=== PATIENT | female | born 1970 | race Caucasian/White ===

== ENCOUNTER 2023-01-26 07:56 | Outpatient (OUT) | payer OTHER, SELFPAY ==
--- NOTE | 2023-01-26 07:59 | MM_ITS ---
Patient: FRANCES STEEL Exam Date: 01/26/2023 : 1970 Gender:F Ordering : DR SARA PIERCE M.D. Admission #: [id number] Family : Order #: [id number] CLICK HERE TO VIEW EXAM RADIOLOGY REPORT PROCEDURE: MM TOMOSYNTHESIS SCREENING BI COMPARISON: MM TOMOSYNTHESIS SCREENING BI, 04/21/2018. MM TOMOSYNTHESIS SCREENING BI, 03/23/2020. INDICATIONS: Screening Calculator Name NCI Breast Cancer Risk Assessment Tool 5 Year Breast Cancer Risk Not Reported. Lifetime Breast Cancer Risk Not Reported. Personal Breast Cancer No Personal Ovarian Cancer No Treatments None Family Cancers None LOCATION: [facility] BREAST COMPOSITION: Heterogeneously dense,which may obscure small masses. FINDINGS: DIAGNOSTIC CATEGORY 1--NEGATIVE. NO CHANGE FROM COMPARISON ASSESSMENT. Scattered benign-appearing calcifications are present. Scattered benign-appearing lymph nodes are present. RIGHT BREAST: No significant suspicious finding. LEFT BREAST: No significant suspicious finding. RECOMMENDATIONS: ROUTINE MAMMOGRAM AND CLINICAL EVALUATION IN 12 MONTHS. PLEASE NOTE: A NORMAL MAMMOGRAM DOES NOT EXCLUDE THE POSSIBILITY OF BREAST CANCER. A CLINICALLY SUSPICIOUS PALPABLE LUMP SHOULD BE BIOPSIED. Dictated by: Doroteo Pierce MD on 01/26/2023 at 10:52 Approved by: Doroteo Pierce MD on 01/26/2023 at 10:53
== END 2023-01-26 07:57 | disposition home or self-care (01) ==
LOC: MAMMO 07:56
PROVIDERS: PCP Family Medicine; Visit Provider Family Medicine
DX: Z12.31 Encounter for screening mammogram for malignant neoplasm of breast (principal)
CPT/HCPCS: 77063; 77067

== ENCOUNTER 2024-02-04 10:13 | Outpatient (OUT) | payer OTHER, SELFPAY ==
--- NOTE | 2024-02-04 10:18 | MM_ITS ---
Patient Name: FRANCES STEEL MR#: [id number] : 1970 Exam Date: 02/04/2024 Ordering Doctor: DR SARA PIERCE M.D. RADIOLOGY REPORT PROCEDURE: MM TOMOSYNTHESIS SCREENING BI COMPARISON: MM TOMOSYNTHESIS SCREENING BI, 01/26/2023. MM TOMOSYNTHESIS SCREENING BI, 03/23/2020. MM TOMOSYNTHESIS SCREENING BI, 04/21/2018. INDICATIONS: Screening Calculator Name NCI Breast Cancer Risk Assessment Tool 5 Year Breast Cancer Risk Not Reported. Lifetime Breast Cancer Risk Not Reported. Personal Breast Cancer No Personal Ovarian Cancer No Treatments None Family Cancers None LOCATION: [facility] BREAST COMPOSITION: The breasts are heterogeneously dense,which may obscure small masses. FINDINGS: DIAGNOSTIC CATEGORY 2--BENIGN FINDING: RIGHT BREAST: No significant suspicious finding. Scattered benign-appearing calcifications are present. No significant change has occurred. LEFT BREAST: No significant suspicious finding. Scattered benign-appearing calcifications are present. No significant change has occurred. RECOMMENDATIONS: ROUTINE MAMMOGRAM AND CLINICAL EVALUATION IN 12 MONTHS. PLEASE NOTE: A NORMAL MAMMOGRAM DOES NOT EXCLUDE THE POSSIBILITY OF BREAST CANCER. A CLINICALLY SUSPICIOUS PALPABLE LUMP SHOULD BE BIOPSIED. Dictated by: Brody Pierson M.D. on 02/05/2024 at 14:51 Approved by: Brody Pierson M.D. on 02/05/2024 at 14:54
== END 2024-02-04 10:14 | disposition home or self-care (01) ==
PROVIDERS: PCP Family Medicine; Visit Provider Family Medicine
DX: Z12.31 Encounter for screening mammogram for malignant neoplasm of breast (principal)
CPT/HCPCS: 77063; 77067

== ENCOUNTER 2025-02-16 09:20 | Outpatient (OUT) | payer OTHER, SELFPAY ==
--- OUTSIDE RECORDS SUMMARY | 2025-02-16 09:25 | XMS_ITS | CCD ---
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 back; Translations: [Muscle spasm of back] 04-18-2024 Episodic Substance-related disorders (6 sources) Tobacco dependence caused by cigarettes; Translations: [Nicotine dependence, cigarettes, uncomplicated] 03-21-2024 Chronic Thyroid disorders (20 sources) Hypothyroidism; Translations: [Hypothyroidism, unspecified] Onset: 8 Resolved: 3 10-12-2017 Chronic Unclassified (1 source) Patient encounter status 09-17-2022 Urinary tract infections (20 sources) Chronic interstitial cystitis; Translations: [Interstitial cystitis (chronic) without hematuria] Onset: 7 Resolved: 3 Chronic Urinary tract infections (14 sources) Urinary tract infectious disease; Translations: [UTI (urinary tract infection)] Onset: 2 Resolved: 2 Episodic Past or Other Problems Problem Classification Problem Date Documented Date Episodic/Chronic Acquired foot deformities (20 sources) Plantarflexion deformity of foot; Translations: [Other acquired deformities of unspecified foot] Onset: 9 Resolved: 3 03-11-2023 Episodic Genitourinary symptoms and ill-defined conditions (20 sources) Dysuria; Translations: [Bladder pain] Onset: 7 Resolved: 3 Episodic Inflammatory diseases of female pelvic organs (20 sources) Acute vaginitis; Translations: [Acute vaginitis] Onset: 8 Resolved: 3 03-11-2023 Episodic Menstrual disorders (20 sources) Amenorrhea; Translations: [Amenorrhea, unspecified] Onset: 1 Resolved: 3 03-11-2023 Chronic Nonmalignant breast conditions (20 sources) Microcalcifications of the breast; Translations: [Mammographic microcalcification found on diagnostic imaging of breast] Onset: 3 Resolved: 3 09-03-2022 Episodic Osteoarthritis (20 sources) Osteoarthritis; Translations: [Unspecified osteoarthritis, unspecified site] Onset: 3 Resolved: 3 03-11-2023 Chronic Other gastrointestinal disorders (20 sources) Slow transit constipation; Translations: [Slow transit constipation] Onset: 0 Resolved: 3 03-24-2023 Episodic Other skin disorders (3 sources) Rash and other nonspecific skin eruption; Translations: [RASH OTH NONSPECIFIC SKIN ERUPTION] Onset: 2 Episodic Other upper respiratory disease (20 sources) Allergic rhinitis; Translations: [Allergic rhinitis, unspecified] Onset: 3 Resolved: 3 09-03-2022 Chronic Otitis media and related conditions (1 source) Other acute nonsuppurative otitis media, bilateral Onset: 2 Resolved: 2 Episodic Screening and history of mental health and substance abuse codes (13 sources) Ex-smoker; Translations: [Personal history of nicotine dependence] Onset: 2 Episodic Sprains and strains (1 source) Strain of muscle, fascia and tendon of lower back, 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 Onset: 2 Resolved: 2 Episodic Results Test Name Value Interpretation Reference Range Facility ANES POSTPROC EVALon 024 ANES POSTPROC EVAL HNO ID: [id number] Author: KASHMIR CHARLES MD Service: Anesthesiology Author Type: Anesthesiologist Type: Anesthesia Postprocedure Evaluation Filed: 09/02/2023 16:49 Note Text: POST ANESTHESIA EVALUATION NOTE : 1970 Procedure Summary Date: 09/02/23 Room / Location: [address] Anesthesia Start: 1547 Anesthesia Stop: 1629 Procedures: CYSTOSCOPY (Bladder) HYDRODISTENTION BLADDER (Bladder) BLADDER IRRIGATION, SIMPLE, INSTILLATION- LIDOCAINE (Bladder) INJECTION BOTOX- 200 UNITS (Bladder) Diagnosis: Interstitial cystitis (Interstitial cystitis [N30.10]) Surgeons: Jolene Mark MD Responsible Provider: Kashmir Charles V, MD Anesthesia Type: general ASA Status: 2 Anesthesia Type: general Airway Type: LMA Last Vitals Vitals Value Taken Time BP 148/84 09/02/23 1645 Temp 36 ?C (96.8 ?F) 09/02/23 1628 Pulse 61 09/02/23 1648 Resp 16 09/02/23 1630 SpO2 95 % 09/02/23 1648 Vitals shown include unfiled device data. Post Anesthesia Patient Status Patient Evaluation: PACU. PACU/ICU Patient Condition: stable. Anticipated Disposition: phase 2 then home. Neurological Status: aware and responsive. Pulmonary Status: breathing comfortably on room air Airway Control: returned to baseline unsupported. Cardiovascular Status: stable. Pain Management: clinically adequate Postoperative Hydration: acceptable. Intraoperative Events: no significant anesthesia events Post Operative Nausea/Vomiting Status: no significant post operative nausea or vomiting Recommendation: continue current plan of care. Anesthesia Observations No Documentation SIGNATURE: Kashmir Charles MD PATIENT NAME: Frances Arizmendi DATE: September 02, 2023 TIME: 4:49 PM CSN: [id number] [facility] ANES PRE-OPon 09-02-2023 ANES PRE-OP HNO ID: [id number] Author: KASHMIR CHARLES MD Service: Anesthesiology Author Type: Anesthesiologist Type: Anesthesia Preprocedure Evaluation Filed: 09/02/2023 14:20 Note Text: ANESTHESIOLOGY DAY OF SURGERY NOTE : 1970 Procedure Information Date/Time: 09/02/23 1450 Procedures: CYSTOSCOPY (Bladder) HYDRODISTENTION BLADDER (Bladder) BLADDER IRRIGATION, SIMPLE, INSTILLATION- LIDOCAINE (Bladder) INJECTION BOTOX- 200 UNITS (Bladder) Location: [address] Surgeons: Jolene Mark MD Estimated body mass index is 30.96 kg/m? as calculated from the following: Height as of 08/20/23: 166.4 cm (5' 5.5 ). Weight as of this encounter: 85.7 kg (188 lb 15 oz). Most recent hematocrit and potassium results: No results found for this basename: HCT,HEMATOCRIT,K,POTASSIUM Relevant Problems ANESTHESIA (+) PONV (postoperative nausea and vomiting) ENDO (+) Hypothyroidism I - PHYSICAL EVALUATION AIRWAY Patient intubated: No. Tracheostomy tube not present Mallampati: II. TM distance: >3 FB. Neck ROM: full ROM without neurological symptoms. Mouth opening: adequate. Short neck: no. Thick neck: no DENTAL Dental findings: teeth intact. Additional exam findings: yes. CARDIOVASCULAR Rhythm: regular Rate: normal PULMONARY Breath sounds clear to auscultation. II - ANESTHESIA PLAN ASA Score: 2 Anesthetic Plan: general Airway type: LMA NPO Status: adequate Beta Dylon Monitoring Plan Monitoring plan: standard ASA. Post Procedure Analgesic Plan Postoperative analgesic plan: multimodal analgesia. Informed Consent Anesthetic risks, benefits, alternatives, personnel and consent discussed: yes. Patient / Responsible Republican agrees to proceed: yes Patient / Surrogate agrees to blood products: blood products not planned Significant changes in the patient condition since the History and Physical, not otherwise documented in primary service progress note: no. Potential Anesthesia issues that may suggest increased risk of complications or contraindication to planned procedure: none. Vitals Value Taken Time BP 127/75 09/02/23 1409 Pulse 61 09/02/23 1409 Resp 18 09/02/23 1409 Temp 36.1 ?C (97 ?F) 09/02/23 1409 SpO2 96 % 09/02/23 1409 Facility-Administered Medications as of 09/02/2023 Medication Dose Route Frequency - lidocaine (PF) 10 mg/mL (1 %) 1-2 mg injection (XYLOCAINE) 0.1-0.2 mL INTRADERMAL PRN - lactated ringers iv infusion 5-30 mL/hr INTRAVENOUS CONTINUOUS - NaCl 0.9% iv flush bag 20 mL INTRAVENOUS PRN - [COMPLETED] ciprofloxacin HCl 500 mg tab(s) (CIPRO) 500 mg ORAL ONCE - [COMPLETED] acetaminophen 1,000 mg tab(s) (TYLENOL) 1,000 mg ORAL ONCE - [COMPLETED] promethazine 12.5 mg tab(s) (PHENERGAN) 12.5 mg ORAL NOW Outpatient Medications as of 09/02/2023 Medication Sig - Cholecalciferol, Vitamin D3, 125 mcg (5,000 unit) cap Take 1 capsule by mouth once daily. - FLUoxetine (PROZAC) 20 mg capsule Take 1 capsule by mouth daily at bedtime. - levothyroxine (SYNTHROID) 50 mcg tablet Take 1 tablet by mouth once daily. - diazePAM (VALIUM) 10 mg tablet Take 1 tablet by mouth twice daily as needed for up to 30 days. - traMADol (ULTRAM) 50 mg tablet Take 1 tablet by mouth twice daily for 240 doses. - lidocaine urojet (XYLOCAINE, GLYDO) 2 % jelp Apply 10 mL to affected area twice daily as needed. - ALBUTEROL SULFATE INHALATION Inhale 1 Puff as instructed as needed. - docusate sodium (COLACE) 100 mg capsule Take 1 capsule by mouth twice daily. (Patient taking differently: Take 100 mg by mouth as needed.) - zolpidem (AMBIEN) 5 mg tablet Take 5 mg by mouth at bedtime as needed. I have interviewed and examined the patient. I have reviewed the medical record and/or the pre-anesthesia evaluation, pertinent labs, and test results. This contains updated information obtained within 48 hours of Surgery/Procedure. SIGNATURE: Kashmir Charles MD PATIENT NAME: Frances Arizmendi DATE: September 02, 2023 TIME: 2:19 PM CSN: [id number] [facility] HISTORY PHYSICALon HISTORY PHYSICAL HNO ID: [id number] Author: JOLENE MARK MD Service: ? Author Type: Physician Type: H&P Filed: 09/02/2023 15:23 Note Text: UPDATED HISTORY AND PHYSICAL EXAMINATION SERVICE DATE: 09/02/2023 SERVICE TIME: PHYSICAL EXAM MUST BE COMPLETED ON ADMISSION The History and Physical (completed in the past 30 days) has been reviewed and the patient has been examined. The contents accurately reflect the patient's condition with the following additions or revisions since the HANDP was completed. Examination indicates no changes. This HANDP can be found in the Electronic Medical Record. Neuro - Alert CV - RRR Lungs - no audible wheezes noted SIGNATURE: Jolene Mark MD PATIENT NAME: Frances Arizmendi DATE: September 02, 2023 TIME: 3:22 PM [facility] OPERATIVE NOon 09-02-2023 OPERATIVE NO HNO ID: [id number] Author: JOLENE MARK MD Service: Urology Author Type: Resident Type: Operative Report Filed: 09/03/2023 08:37 Note Text: Attestation signed by Jolene Mark MD at 09/03/2023 8:37 AM . OPERATIVE/PROCEDURE REPORT LOG ID: [id number] SURGERY/PROCEDURE DATE: 09/02/2023 INCISION/PROCEDURE START TIME: 4:06 PM INCISION CLOSE/PROCEDURE END TIME: 4:20 PM SURGEON(S)/PROCEDURALIST(S) AND MRB ENGINEER(S): Surgeon(s) and Role: * Jolene Mark MD - Primary * Bailey Campos MD - Resident - Assisting No Additional Staff SURGERY/PROCEDURE(S): Cystoscopy Injection of bladder botox (200 units) Instillation of lidocaine Fulguration of bladder ANESTHESIA: General SURGERY/PROCEDURE DETAILS: The Procedure Indications, Risks, benefits, alternatives and personnel were discussed with the patient who consents to proceed. The patient brought to OR and sign in communication performed involving the patient, surgeons, anesthesia, and operative staff, correctly identifying the patient, procedure, allergies, antibiotics, and equipment. Sequential compression devices were applied to the lower limbs and activated. General anesthesia was induced, weight-appropriate IV antibiotics were administered. Patient repositioned in dorsal lithotomy, pressure points were padded, and patient prepped and draped in sterile fashion. Timeout with safety checklist was performed. A rigid cystoscope with 30 degree lens was inserted atraumatically per urethra into the bladder and cystoscopy was performed. The findings were as follows: Urethra: normal, no lesions, no foreign body or obstruction, no overt evidence of a urethral diverticulum Bladder: white scarring from previous fulgurations at the posterior left bladder wall, posterior and both lateral zayas. Corkscrew capillaries AND capillary proliferation. No current Hunner's lesions. No tumors, masses, stones, or diverticula. Ureteral orifices were in orthotopic position with clear bilateral urine efflux. Botox was then injected to the bladder wall - 200 units in 20 cc in 20 locations throughout the posterior and bilateral bladder zayas and trigone. One bladder botox injection had persistent bleeding, so fulguration of this site was performed. The bladder was drained and re-irrigated until drainage became clear. A 16-Fr catheter was inserted, the bladder was completely drained and 70 mL 2% lidocaine solution was instilled. The catheter was removed. The patient safely woken from anesthesia and transferred to the recovery room in stable condition. Preoperative Diagnosis: Bladder pain / interstitial cystitis/bladder pain syndrome POST-OP/POST-PROCEDURE DIAGNOSIS: Same as Preop ESTIMATED BLOOD LOSS: 5 mls SPECIMENS: None IMPLANTABLE DEVICES: NONE DRAINS: None COMPLICATIONS: None PARTICIPATION IN SURGERY/PROCEDURE: I/primary surgeon/proceduralist performed the procedure with assistance. SIGNATURE: Bailey Campos MD PATIENT NAME: Frances Arizmendi DATE: September 02, 2023 TIME: 4:31 PM [facility] HISTORY PHYSICALon HISTORY PHYSICAL HNO ID: [id number] Author: TYSON VILLARREAL APRN.MANAGER BOOKS Service: ? Author Type: Nurse Practitioner Type: H&P Filed: 08/20/2023 10:40 Note Text: PREANESTHESIA CONSULT CLINIC TELEHEALTH VISIT SERVICE DATE: 08/20/2023 SERVICE TIME: 10:29 AM Patient has been identified by name and date of : Yes Reason for contact: PACC visit Accompanied by: Self This is a virtual visit using [employer] Video Visit. It required patient-provider interaction for the medical decision making as documented below. I have communicated my name and active licensure. The patient's identity and physical location were verified at the time of this visit. Either the patient or their legal medical claims representative has been informed of the risks and benefits of and alternatives to treatment through a remote evaluation and consents to proceed with the evaluation remotely. PRIMARY CARE PHYSICIAN: Rajendra Sellers MD REASON FOR VISIT: Frances Arizmendi is a 53 year old female who is scheduled for CYSTOSCOPY HYDRODISTENTION BLADDER BLADDER IRRIGATION, SIMPLE, INSTILLATION- LIDOCAINE INJECTION BOTOX- 200 UNITS at the request of Dr. Jolene Mark for consultation. My final recommendation will be communicated back to the requesting physician by way of shared medical record or letter. Assessment Patient has the following medical conditions which may affect josiah-operative course: Former smoker Assessment: Former Smoker quit in 2019 0.5 ppd x 18 years PONV (postoperative nausea and vomiting) Assessment: patient states gets PONV with Anesthesia Hypothyroidism Assessment: s/p Thyroidectomy on Levothyroxine(Synthroid) Depression Assessment: stable on medication Follows with Psych managing medications Denies any suicidal ideations Ferreira Activity Status Index: METS: Walk indoors, such as around the house (1.75 METs) Do light work around the house, such as dusting or washing dishes (2.70 METs) Take care of self; that is eating, dressing, bathing, using the toilet (2.75 METs) Walk a block or two on level ground (2.75 METs) Do moderate work around the house, such as vacuuming, sweeping floors, or carrying in groceries (3.50 METs) Do yardwork, such as raking leaves, weeding, or pushing a power mower (4.50 METs) Climb a flight of stairs or walk up a hill (5.50 METs) DASI Score: 23.45 Patient denies any chest pain or undue shortness of breath with the above physical activity. Clinical Frailty Scale: 2. Well STOP-Bang Score: Patient over 50 years old Denies snoring loudly Denies feeling tired, fatigued, or sleepy during the daytime Has not been observed to stop breathing or choking/gasping during sleep Denies having high blood pressure BMI less than or equal to 35 kg/m2 Does not have a large neck Non-male patient STOP-Bang Score: 1 [id number] Score: Age: <65 Sex: female CHF history: No Hypertension history: No Stroke/TIA/thromboembolism history: No Vascular disease history: No Diabetes history: No [id number] Score: 1 ARISCAT Score: Age: 51-80 Respiratory infection in the last month: No Preoperative anemia: Yes Surgical incision: peripheral Duration of surgery: <2 hrs Emergency procedure: No ARISCAT Score: ANESTHESIA FINDINGS: Intubation History: No history of difficult intubation. No abnormal airway history Significant Anesthesia Considerations: potential postop nausea/vomiting Airway History: No history of difficult airway No abnormal airway history I - PHYSICAL EVALUATION AIRWAY Patient intubated: No. Tracheostomy tube not present Mallampati: II. TM distance: >3 FB. Neck ROM: full ROM without neurological symptoms. Mouth opening: adequate. Thick neck: no Lazcano present: no Lip Bite Test: I Microretrognathia/Micronagthia/Re cessed Chin: No DENTAL Dental findings: teeth intact. II - ANESTHESIA PLAN Anesthetic plan additional comments: *PACC/TCI - anesthesia choice. Beta Dylon Monitoring Plan Post Procedure Analgesic Plan Prepared for surgery: This patient is optimally prepared for surgery. CONSULTS: Patient does not require consults for optimization at this time. The Following Tests/Procedures Have Been Initiated: Labs not indicated per PACC protocol, EKG not indicated per PACC protocol Planned Anesthetic: Per anesthesia choice Subjective CHIEF COMPLAINT: Interstitial Cystitis HPI: 53 year old female who presents with interstitial cystitis with a history of this procedure in the past with good success. Last Surgery 03/25/2023. Conservative measures have been ineffective. Patient has opted to proceed with above reccommended surgery and is here today for preanesthesia consultation. PAST MEDICAL HISTORY Diagnosis Date Anxiety Depression Hypothyroidism Interstitial cystitis Light tobacco smoker PONV (postoperative nausea and vomiting) PAST SURGICAL HISTORY Procedure Laterality Date BLADDER SURGERY HX (more content not included)... [facility] Urine Cultureon 07-20-2023 Bacteria identified Cx Nom (U) No Growth 2 Days PERFORMED BY: [place] [address] PATHOLOGIST [employer] SHAPER OPERATOR ROSALIA PRAJAPATI M.D. Normal [facility] Comment on above: Performed By: #### CUU #### [address] [place] 03-30-2023 KAUSHIKN Telephone (URODEYANIRAN) FRANCES ARIZMENDI ([id number]) 1970 F Date Time Provider Department 03/30/23 PIEDAD GAYLE UROHERON During your visit today, we recorded the following information about you: Piedad Gayle MD 03/30/2023 4:44 PM Signed Phone encounter following cystoscopy + hydrodistention and bladder botox injection on 03-25-2023. Patient is not available. Left VM. Piedad Gayle MD Allergies As of Date: 03/30/2023 Noted Allergy Reaction ASA (ASPIRIN) 04/04/2016 14 - Other: See Comments Comments: Bladder irritation AZITHROMYCIN 04/04/2016 7 - Swelling Comments: tongue swelling ERYTHROMYCIN 11/20/2015 14 - Other: See Comments Comments: Throat closed up NSAIDS (NON-STEROIDAL ANTI-INFLAM*04/04/2016 14 - Other: See Comments Comments: Bladder irritation PENICILLINS 11/20/2015 14 - Other: See Comments Comments: Throat close up PINEAPPLE 11/20/2015 12 - Shortness of Breath Comments: Tongue swells PROPOXYPHENE NAPSYLATE 04/04/2016 8 - GI Upset Comments: nausea SULFA (SULFONAMIDE ANTIBIOTICS) 11/20/2015 4 - Hives TRIMETHOPRIM 04/04/2016 4 - Hives Date Reviewed: 03/25/2023 Reviewed by: Mely Wynne, RN - Fully Assessed Prescriptions as of 03/30/2023 - diazePAM (VALIUM) 10 mg tablet Take 1 tablet by mouth twice daily as needed for up to 30 days. - phenazopyridine (PYRIDIUM, GERIDIUM) 200 mg tablet Take 1 tablet by mouth three times daily as needed. For up to 3 days. Extra tablets given for self start - traMADol (ULTRAM) 50 mg tablet Take 1 tablet by mouth twice daily for 240 doses. - lidocaine urojet (XYLOCAINE, GLYDO) 2 % jelp Apply 10 mL to affected area twice daily as needed. - Cholecalciferol, Vitamin D3, 125 mcg (5,000 unit) cap Take 1 capsule by mouth once daily. - FLUoxetine (PROZAC) 20 mg capsule Take 1 capsule by mouth daily at bedtime. - ALBUTEROL SULFATE INHALATION Inhale 1 Puff as instructed as needed. - docusate sodium (COLACE) 100 mg capsule Take 1 capsule by mouth twice daily. - levothyroxine (SYNTHROID) 50 mcg tablet Take 1 tablet by mouth once daily. - zolpidem (AMBIEN) 5 mg tablet Take 5 mg by mouth at bedtime as needed. Meds Comments as of 02/17/2018: Current daily medications: Cytotec, Synthroid, Mirena, Colace, Atapex, Estradiol, and Wellbutrin. PRN Ambien and Xanax. February 17, 2018 Miriam Ward RN Problem List As Of Date 03/30/2023 Noted Resolved Chronic interstitial cystitis with hematuria [N*11/21/2015 11/23/2020 Interstitial cystitis [N30.10] 09/24/2017 11/23/2020 Hypothyroidism [E03.9] 10/12/2017 Depression [F32.A] 10/12/2017 Anxiety [F41.9] 10/12/2017 Chronic interstitial cystitis [N30.10] 01/26/2018 PONV (postoperative nausea and vomiting) [R11.2* BMI 31.0-31.9,adult [Z68.31] 04/30/2022 Former smoker [Z87.891] 04/30/2022 Encounter Status:Closed by PIEDAD GAYLE on 03/30/23 [facility] ANES POSTPROC EVALon 023 ANES POSTPROC EVAL HNO ID: [id number] Author: Treasure Galindo MD Service: Anesthesiology Author Type: Physician Type: Anesthesia Postprocedure Evaluation Filed: 03/25/2023 4:19 PM Note Text: POST ANESTHESIA EVALUATION NOTE : 1970 Procedure Summary Date: 03/25/23 Room / Location: [address] Anesthesia Start: 1343 Anesthesia Stop: 1431 Procedures: CYSTOSCOPY (Bladder) INJECTION BLADDER BOTOX - 200UNITS (Bladder) HYDRODISTENTION BLADDER (Bladder) INSTILLATION OF LIDOCAINE (Bladder) Diagnosis: Cystitis (Cystitis [N30.90]) Surgeons: Jolene Mark MD Responsible Provider: Treasure Galindo MD Anesthesia Type: general ASA Status: 2 Anesthesia Type: general Airway Type: LMA Last Vitals Vitals Value Taken Time BP 140/84 03/25/23 1515 Temp 36 ?C (96.8 ?F) 03/25/23 1515 HR SpO2 64 03/25/23 1500 Resp 16 03/25/23 1515 SpO2 96 % 03/25/23 1515 Post Anesthesia Patient Status Patient Evaluation: PACU. PACU/ICU Patient Condition: stable. Anticipated Disposition: phase 2 then home. Neurological Status: aware and responsive. Pulmonary Status: breathing comfortably on room air Cardiovascular Status: stable. Pain Management: clinically adequate Postoperative Hydration: acceptable. Intraoperative Events: no significant anesthesia events Post Operative Nausea/Vomiting Status: no significant post operative nausea or vomiting Recommendation: continue current plan of care. Anesthesia Observations No Documentation SIGNATURE: Treasure Galindo MD PATIENT NAME: Frances Arizmendi DATE: March 25, 2023 TIME: 4:19 PM CSN: [id number] [facility] ANES PRE-OPon 03-25-2023 ANES PRE-OP HNO ID: [id number] Author: Kashmir Charles V, MD Service: Anesthesiology Author Type: Anesthesiologist Type: Anesthesia Preprocedure Evaluation Filed: 03/25/2023 12:36 PM Note Text: ANESTHESIOLOGY DAY OF SURGERY NOTE : 1970 Procedure Information Date/Time: 03/25/23 1320 Procedures: CYSTOSCOPY (Bladder) INJECTION BLADDER BOTOX - 200UNITS (Bladder) HYDRODISTENTION BLADDER (Bladder) INSTILLATION OF LIDOCAINE (Bladder) Location: [address] Surgeons: Jolene Mark MD Estimated body mass index is 30.99 kg/m? as calculated from the following: Height as of 03/12/23: 167.6 cm (5' 6 ). Weight as of 03/12/23: 87.1 kg (192 lb). Most recent hematocrit and potassium results: No results found for this basename: HCT,HEMATOCRIT,K,POTASSIUM Relevant Problems ANESTHESIA (+) PONV (postoperative nausea and vomiting) ENDO (+) Hypothyroidism I - PHYSICAL EVALUATION AIRWAY Patient intubated: No. Tracheostomy tube not present Mallampati: II. TM distance: >3 FB. Neck ROM: full ROM without neurological symptoms. Mouth opening: adequate. Short neck: no. Thick neck: no DENTAL Dental findings: teeth intact. Additional exam findings: yes. CARDIOVASCULAR Rhythm: regular Rate: normal PULMONARY Breath sounds clear to auscultation. II - ANESTHESIA PLAN ASA Score: 2 Anesthetic Plan: general Airway type: LMA NPO Status: adequate Beta Dylon Monitoring Plan Monitoring plan: standard ASA. Post Procedure Analgesic Plan Postoperative analgesic plan: multimodal analgesia. Informed Consent Anesthetic risks, benefits, alternatives, personnel and consent discussed: yes. Patient / Responsible Republican agrees to proceed: yes Patient / Surrogate agrees to blood products: blood products not planned Significant changes in the patient condition since the History and Physical, not otherwise documented in primary service progress note: no. Potential Anesthesia issues that may suggest increased risk of complications or contraindication to planned procedure: none. No vitals data found for the desired time range. Facility-Administered Medications as of 03/25/2023 Medication Dose Route Frequency - [COMPLETED] acetaminophen 1,000 mg tab(s) (TYLENOL) 1,000 mg ORAL ONCE - [COMPLETED] promethazine 12.5 mg tab(s) (PHENERGAN) 12.5 mg ORAL Pre-Op Once - lidocaine (PF) 10 mg/mL (1 %) 1-2 mg injection (XYLOCAINE) 0.1-0.2 mL INTRADERMAL PRN - lactated ringers iv infusion 5-30 mL/hr INTRAVENOUS CONTINUOUS - NaCl 0.9% iv flush bag 20 mL INTRAVENOUS PRN - ceFAZolin 2 g in dextrose (iso-osmotic) 50 mL (ANCEF,KEFZOL) 2 g INTRAVENOUS Pre-Op Once Outpatient Medications as of 03/25/2023 Medication Sig - diazePAM (VALIUM) 10 mg tablet Take 1 tablet by mouth twice daily as needed for up to 30 days. - phenazopyridine (PYRIDIUM, GERIDIUM) 200 mg tablet Take 1 tablet by mouth three times daily as needed. For up to 3 days. Extra tablets given for self start - traMADol (ULTRAM) 50 mg tablet Take 1 tablet by mouth twice daily for 240 doses. - lidocaine urojet (XYLOCAINE, GLYDO) 2 % jelp Apply 10 mL to affected area twice daily as needed. - Cholecalciferol, Vitamin D3, 125 mcg (5,000 unit) cap Take 1 capsule by mouth once daily. - FLUoxetine (PROZAC) 20 mg capsule Take 1 capsule by mouth daily at bedtime. - ALBUTEROL SULFATE INHALATION Inhale 1 Puff as instructed as needed. - docusate sodium (COLACE) 100 mg capsule Take 1 capsule by mouth twice daily. (Patient taking differently: Take 100 mg by mouth as needed.) - levothyroxine (SYNTHROID) 50 mcg tablet Take 1 tablet by mouth once daily. - zolpidem (AMBIEN) 5 mg tablet Take 5 mg by mouth at bedtime as needed. I have interviewed and examined the patient. I have reviewed the medical record and/or the pre-anesthesia evaluation, pertinent labs, and test results. This contains updated information obtained within 48 hours of Surgery/Procedure. SIGNATURE: Kashmir Charles MD PATIENT NAME: Frances Arizmendi DATE: March 25, 2023 TIME: 12:35 PM CSN: [id number] [facility] BRIEF OP NOTon 03-25-2023 BRIEF OP NOT HNO ID: [id number] Author: Piedad Gayle MD Service: ? Author Type: Fellow Type: Brief Op Note Filed: 03/25/2023 2:26 PM Note Text: BRIEF OPERATIVE / PROCEDURE NOTE LOG ID: [id number] SURGERY/PROCEDURE DATE: 03/25/2023 INCISION/PROCEDURE START TIME: 1:59 PM INCISION CLOSE/PROCEDURE END TIME: 2:21 PM SURGEON(S)/PROCEDURALIST(S) AND MRB ENGINEER(S): Surgeon(s) and Role: * Jolene Mark MD - Primary * Piedad Gayle MD - Fellow No Additional Staff SURGERY/PROCEDURE(S): bladder hydro-distension and bladder botox injection ANESTHESIA: General FINDINGS: white scarring from previous fulgurations at dome, posterior and both lateral zayas. Corkscrew capillaries AND capillary proliferation. No current Hunner's lesions. No tumors, masses, stones, or diverticula. ESTIMATED BLOOD LOSS: 0 ml SPECIMENS: None COMPLICATIONS: None CLOSURE TECHNIQUE: N/A PRE-OP/PRE-PROCEDURE DIAGNOSIS: IC/PBS POST-OP/POST-PROCEDURE DIAGNOSIS: Same as Preop SIGNATURE: Piedad Gayle MD PATIENT NAME: Frances Arizmendi DATE: March 25, 2023 TIME: 2:24 PM [facility] HISTORY PHYSICALon 3 HISTORY PHYSICAL HNO ID: [id number] Author: Jolene Mark MD Service: ? Author Type: Physician Type: HANDP Filed: 03/25/2023 1:29 PM Note Text: UPDATED HISTORY AND PHYSICAL EXAMINATION SERVICE DATE: 03/25/2023 SERVICE TIME: PHYSICAL EXAM MUST BE COMPLETED ON ADMISSION The History and Physical (completed in the past 30 days) has been reviewed and the patient has been examined. The contents accurately reflect the patient's condition with the following additions or revisions since the HANDP was completed. Examination indicates no changes. This HANDP can be found in the Electronic Medical Record. Neuro: Alert CV: RRR Lungs: CTA SIGNATURE: Jolene Mark MD PATIENT NAME: Frances Arizmendi DATE: March 25, 2023 TIME: 1:28 PM [facility] OPERATIVE NOon 03-25-2023 OPERATIVE NO HNO ID: [id number] Author: Piedad Gayle MD Service: ? Author Type: Fellow Type: Operative Report Filed: 03/25/2023 3:19 PM Note Text: Attestation signed by Jolene Mark MD at 03/25/2023 4:31 PM . OPERATIVE/PROCEDURE REPORT LOG ID: [id number] SURGERY/PROCEDURE DATE: 03/25/2023 INCISION/PROCEDURE START TIME: INCISION CLOSE/PROCEDURE END TIME: SURGEON(S)/PROCEDURALIST(S) AND MRB ENGINEER(S): Surgeon(s) and Role: * Jolene Mark MD - Primary * Piedad Gayle MD - Fellow No Additional Staff SURGERY/PROCEDURE(S): Cystoscopy and hydro-distension + bladder botox injections PRE-OP/PRE-PROCEDURE DIAGNOSIS: Bladder pain / interstitial cystitis/bladder pain syndrome POST-OP/POST-PROCEDURE DIAGNOSIS: Same as Preop ANESTHESIA: General SURGERY/PROCEDURE DETAILS: CYSTOSCOPY The Procedure Indications, Risks, benefits, alternatives and personnel were discussed with the patient who consents to proceed. The patient brought to OR and sign in communication performed involving the patient, surgeons, anesthesia, and operative staff, correctly identifying the patient, procedure, allergies, antibiotics, and equipment. Sequential compression devices were applied to the lower limbs and activated. General anesthesia was induced, weight-appropriate IV antibiotics were administered. Patient repositioned in dorsal lithotomy, pressure points were padded, and patient prepped and draped in sterile fashion. Timeout with safety checklist was performed. A rigid cystoscope with 30 degree lens was inserted atraumatically per urethra into the bladder and cystoscopy was performed. The findings were as follows: Urethra: normal, no lesions, no foreign body or obstruction, no overt evidence of a urethral diverticulum Bladder: white scarring from previous fulgurations at the posterior left bladder wall, posterior and both lateral zayas. Corkscrew capillaries AND capillary proliferation. No current Hunner's lesions. No tumors, masses, stones, or diverticula. Ureteral orifices were in orthotopic position with clear bilateral urine efflux. Hydrodistention: Hydrodistention was then performed with normal saline at 80 cmH2O pressure under constant visualization of bladder wall and held for a total of 10 minutes. Heat rate was mildly elevated with distension. Mucosal fragility with glomerulations, waterfall hemorrhage and edema were noted. Bladder capacity under anesthesia 300 mL. Botox was injected to the bladder wall - 200 units in 20 cc in 20 locations throughout the posterior and bilateral bladder zayas and trigone. Bladder was drained and re-irrigated until drainage became clear. A 16-Fr catheter was inserted, the bladder was completely drained and 70 mL 2% lidocaine solution was instilled. The catheter was removed. Vaginal sweep was negative. The patient safely woken from anesthesia and transferred to the recovery room in stable condition. Preoperative Diagnosis: Bladder pain / interstitial cystitis/bladder pain syndrome ESTIMATED BLOOD LOSS: minimal SPECIMENS: None IMPLANTABLE DEVICES: NONE DRAINS: None COMPLICATIONS: None CLOSURE TECHNIQUE: N/A PARTICIPATION IN SURGERY/PROCEDURE: I/primary surgeon/proceduralist performed the procedure with assistance. SIGNATURE: Piedad Gayle MD PATIENT NAME: Frances Arizmendi DATE: March 25, 2023 TIME: 1:43 PM [facility] HISTORY PHYSICALon 3 HISTORY PHYSICAL HNO ID: [id number] Author: Lillian Adan APRN.KAUSHIK Service: ? Author Type: Nurse Practitioner Type: HANDP Filed: 03/12/2023 3:15 PM Note Text: PREANESTHESIA CONSULT CLINIC TELEHEALTH VISIT Patient has been identified by name and date of : Yes This is a virtual visit using MyChart Zoom Video Visit. It require patient-provider interaction for the medical decision making as documented below. Reason for contact: PACC visit Accompanied by: Self This is a virtual visit using MyChart Zoom Video Visit. It required patient-provider interaction for the medical decision making as documented below. I have communicated my name and active licensure. The patient's identity and physical location were verified at the time of this visit. Either the patient or their legal medical claims representative has been informed of the risks and benefits of and alternatives to treatment through a remote evaluation and consents to proceed with the evaluation remotely. Scheduled Surgery: CYSTOSCOPY with Jolene Mark MD on 03/25/2023 Subjective CHIEF COMPLAINT: Patient presents with: Pre-Op Visit HPI: This is a 52 year old female who presents with interstitial cystitis with a history of this procedure in the past with good success. Conservative measures have been ineffective. Patient has opted to proceed with above reccommended surgery and is here today for preanesthesia consultation. ACTIVE PROBLEM LIST Hypothyroidism Depression Anxiety Chronic Interstitial Cystitis Ponv (Postoperative Nausea and Vomiting) Bmi 31.0-31.9,Adult Former Smoker PAST MEDICAL HISTORY Diagnosis Date Anxiety Depression Hypothyroidism Interstitial cystitis Light tobacco smoker PONV (postoperative nausea and vomiting) PAST SURGICAL HISTORY Procedure Laterality Date BLADDER SURGERY HX 2017 x 2 CYSTOSCOPY,DIL BLADDER,LOCAL ANESTH 06/2020 EXCISION AXILLARY LYMPH NODE Benign FOOT SURGERY HX Callus removal THYROIDECTOMY SUBTOTAL/PARTIAL 2017 TONSILLECTOMY HX 1985 VAGINAL HYSTERECTOMY FAMILY HISTORY Problem Relation Age of Onset None Mother Hypertension Father Heart Father arrhythmia Anesthesia Problems No Family History Social History Tobacco Use Smoking status: Former Packs/day: 0.50 Years: 18.00 Additional pack years: 0.00 Total pack years: 9.00 Types: Cigarettes Start date: 06/22/2001 Quit date: 10/31/2019 Years since quittin.3 Smokeless tobacco: Never Vaping Use Vaping Use: Never used Substance Use Topics Alcohol use: Yes Comment: 2 glasses a month Drug use: No ALLERGIES Allergen Reactions Asa [Aspirin] Other: See Comments Bladder irritation Azithromycin Swelling tongue swelling Erythromycin Other: See Comments Throat closed up Nsaids (Non-Steroid* Other: See Comments Bladder irritation Penicillins Other: See Comments Throat close up Pineapple Shortness of Breath Tongue swells Propoxyphene Napsyl* GI Upset nausea Sulfa (Sulfonamide * Hives Trimethoprim Hives MEDICATIONS: Current Outpatient Medications Medication Sig ALBUTEROL SULFATE INHALATION Inhale 1 Puff as instructed as needed. Cholecalciferol, Vitamin D3, 125 mcg (5,000 unit) cap Take 1 capsule by mouth once daily. diazePAM (VALIUM) 10 mg tablet Take 1 tablet by mouth twice daily as needed for up to 30 days. docusate sodium (COLACE) 100 mg capsule Take 1 capsule by mouth twice daily. (Patient taking differently: Take 100 mg by mouth as needed.) FLUoxetine (PROZAC) 20 mg capsule Take 1 capsule by mouth daily at bedtime. levothyroxine (SYNTHROID) 50 mcg tablet Take 1 tablet by mouth once daily. lidocaine urojet (XYLOCAINE, GLYDO) 2 % jelp Apply 10 mL to affected area twice daily as needed. phenazopyridine (PYRIDIUM, GERIDIUM) 200 mg tablet Take 1 tablet by mouth three times daily as needed. For up to 3 days. Extra tablets given for self start traMADol (ULTRAM) 50 mg tablet Take 1 tablet by mouth twice daily for 240 doses. zolpidem (AMBIEN) 5 mg tablet Take 5 mg by mouth at bedtime as needed. No current facility-administered medications for this visit. Covid Immunization Dates Overdue - Covid-19 Vaccine ( season) Overdue since 01/30/2023 06/11/2020 Imm Admin: COVID-19 original vaccine, age 12+ yr, monovalent ([facility] - [facility]) 05/18/2020 Imm Admin: COVID-19 original vaccine, age 12+ yr, monovalent ([facility] - [facility]) REVIEW OF SYSTEMS: Pain Assessment: General: No weight loss, malaise or fevers. Neuro: No history of TIA's, stroke, FINISHING DEPARTMENT SUPERVISOR tumor, impaired sensorium, hemiplegia, paraplegia or quadraplegia. No neurological symptoms or problems. Respiratory: No history of current cough or dyspnea, or pneumonia in the past 6 weeks. No history of respiratory/pulmonary symptoms or problems. Cardiovascular: No history of HTN requiring medication, no history of angina, CHF, MN, cardiac surgery or stents. Denies rest pa (more content not included)... [facility] Outside Colonoscopyon 2022 Outside Colonoscopy [id number]:127 [facility] Reminderson 10-02-2022 Reminders - From: Fara Lamas LPN To: ALLI - Prior Authorization; Sent: 10/02/2022 08:44:04 EDT Show up: 09/01/2032 07:00:00 EDT Subject: colonoscopy recall Due Date/Time: 10/01/2032 07:00:00 EDT Reminder/Recall Patient due for screening colonoscopy 10/01/2032. Normal [facility] Consent for Procedure/Surger yon 09-18-2022 Consent for Procedure/Surg yvette [id number]#[id number]:127 [facility] Formson 09-18-2022 Forms [id number]#[id number]:127 [facility] Ambulatory Visit Summaryon 0 09-17-2022 Ambulatory Visit Summary ADELA ARIZMENDIEKBERTIN Temple :1970 Visit Date:09/17/2022 Ambulatory Visit Instructions Your Diagnosis Screening for malignant neoplasm of colon Your Care Team Attending Physician - KENDRICK TIAN, Lazaro Miller Primary Care Physician - MOUNIKA ARIAS This Is Your Medications List Contact prescribing physician if questions or concerns ergocalciferol (Vitamin D 50,000 intl units (1.25 mg) oral capsule) fluoxetine (Prozac 20 mg Cap) levothyroxine (levothyroxine 50 mcg (0.05 mg) Tab) phentermine (phentermine 37.5 mg oral capsule) polyethylene glycol 3350 (MiraLax) zolpidem (Ambien 5 mg Tab) Procedures Performed Abdominal hysterectomy, Colonoscopy, Correction of hammer toe, Excision of cyst, Excision of lipoma of shoulder, History of urinary bladder surgery, Insertion of IUD, IUD - Removal of displaced intrauterine device, Right lobectomy of thyroid gland, Tonsillectomy. Discharge Vitals Heart Rate (Peripheral) 74 Respiratory Rate 16 Blood Pressure 132/92 Height 165.1 cm Height 65 in Weight 83.4 kg Weight 183.48 lb BMI 30.6 Medications What How Much When Instructions Unchanged ergocalciferol (Vitamin D 50,000 intl units (1.25 mg) oral capsule) 1 Capsules By Mouth Every day Contact prescribing physician if questions or concerns Unchanged fluoxetine (Prozac 20 mg Cap) 1 Capsules By Mouth Every day Contact prescribing physician if questions or concerns Unchanged levothyroxine (levothyroxine 50 mcg (0.05 mg) Tab) 1 Tablets By Mouth Every day Contact prescribing physician if questions or concerns Unchanged phentermine (phentermine 37.5 mg oral capsule) 1 Capsules By Mouth Every day Contact prescribing physician if questions or concerns Unchanged polyethylene glycol 3350 (MiraLax) 17 Gram By Mouth Every day Contact prescribing physician if questions or concerns Unchanged zolpidem (Ambien 5 mg Tab) 1 Tablets By Mouth Once a day (at bedtime) Contact prescribing physician if questions or concerns Allergies NSAIDs (Interstitial cystitis) aspirin (Interstitial cystitis) azithromycin (Swelling) propoxyphene (GI Upset) sulfa drugs (Urticaria) trimethoprim (Urticaria) Problems Ongoing - Any problem that you are currently receiving treatment for. Allergic rhinitis Anxiety Asthma BMI 30.0-30.9,adult Breast microcalcifications Chronic constipation Chronic interstitial cystitis DDD (degenerative disc disease), lumbar Depressive disorder Hyperlipidemia Hypothyroidism Insomnia Interstitial cystitis Nontoxic multinodular goiter Obesity Screening for malignant neoplasm of colon Tobacco user Vitamin D deficiency Normal [facility] Physician Referralon 023 Physician Referral [id number]:127 [facility] Urinalysis - AUTOMATEDon Appearance (U) clear [employer] Other Bilirubin Ql (U) Negative [employer] Other Color (U) pale yellow [employer] Other Glucose Ql (U) Negative [employer] Other Hemoglobin Ql (U) trace [employer] Other Ketones Ql (U) Negative [employer] Other Leukocyte esterase Test strip Ql (U) Negative [employer] Other Nitrite Ql (U) Negative [employer] Other pH (U) 7.0 [pH] [employer] Other Protein Ql (U) trace [employer] Other Specific gravity (U) [Rel density] 1.025 [employer] Other Urobilinogen (U) [Mass/Vol] 0.2 mg/dL [employer] Other Urinalysis - AUTOMATED [employer] Other Urine Cultureon 10-11-2021 Urine Culture 50,000 [employer] Other Bacteria identified Cx Nom (U) [employer] Other HISTORY PHYSICALon HISTORY PHYSICAL HNO ID: [id number] Author: Luci Cole Service: ? Author Type: Nurse Practitioner Type: HANDP Filed: 06/22/2020 3:42 PM Note Text: PREANESTHESIA CONSULT CLINIC TELEHEALTH VISIT Patient has been identified by name and date of : Yes Reason for contact: PACC visit Accompanied by: Self Scheduled Surgery: Bladder Hydrodistention Subjective CHIEF COMPLAINT: Patient presents with: Anesthesia Consult HPI: This is a 50 year old female who presents with interstitial cystitis. Patient has history of chronic interstitial cystitis for years. It has been almost a year since she has had the hydrodistention done due COVID. She is able to have them done every 3-6 months. She has pain present in the vagina intermittently which is burning in sensation. Activity, bending over and being on her feet aggravates pain. Rest and medication help with pain relief. She has chronic dysuria and frequency. Denies urgency, incontinence, consistent nocturia, hematuria, history kidney stones or CKD. ACTIVE PROBLEM LIST Chronic Interstitial Cystitis With Hematuria Interstitial Cystitis Hypothyroidism Depression Anxiety Chronic Interstitial Cystitis Ponv (Postoperative Nausea and Vomiting) PAST MEDICAL HISTORY Diagnosis Date - Anxiety - Depression - Hypothyroidism - Interstitial cystitis - Light tobacco smoker - PONV (postoperative nausea and vomiting) PAST SURGICAL HISTORY Procedure Laterality Date - BLADDER SURGERY HX 2017 x 2 - EXCISION AXILLARY LYMPH NODE Benign - FOOT SURGERY HX Callus removal - THYROIDECTOMY SUBTOTAL/PARTIAL 2017 - TONSILLECTOMY HX 1985 FAMILY HISTORY Problem Relation Age of Onset - None Mother - Hypertension Father - Heart Father arrhythmia Social History Tobacco Use - Smoking status: Former Smoker Packs/day: 0.50 Years: 18.00 Pack years: 9.00 Types: Cigarettes Start date: 06/22/2001 Quit date: 10/31/2019 Years since quittin.6 - Smokeless tobacco: Never Used Substance Use Topics - Alcohol use: Yes Comment: 2 glasses a month - Drug use: No ALLERGIES Allergen Reactions - Asa [Aspirin] Other: See Comments Bladder irritation - Azithromycin Swelling tongue swelling - Erythromycin Other: See Comments Throat closed up - Nsaids (Non-Steroid* Other: See Comments Bladder irritation - Penicillins Other: See Comments Throat close up - Pineapple Shortness of Breath Tongue swells - Propoxyphene Napsyl* GI Upset nausea - Sulfa (Sulfonamide * Hives - Trimethoprim Hives MEDICATIONS: Current Outpatient Medications Medication Sig - FLUoxetine (PROZAC) 20 mg capsule Take 1 capsule by mouth daily at bedtime. - ALBUTEROL SULFATE INHALATION Inhale 1 Puff as instructed as needed. - traMADol (ULTRAM) 50 mg tablet Take 1 tablet by mouth twice daily - phenazopyridine (PYRIDIUM, GERIDIUM) 200 mg tablet Take 1 tablet by mouth three times daily as needed. - lidocaine urojet (XYLOCAINE, GLYDO) 2 % jelp Apply 10 mL to affected area twice daily as needed. (Discard remaining gel) - docusate sodium (COLACE) 100 mg capsule Take 1 capsule by mouth twice daily. (Patient taking differently: Take 100 mg by mouth as needed. ) - levothyroxine (SYNTHROID) 50 mcg tablet Take 1 tablet by mouth once daily. - zolpidem (AMBIEN) 5 mg tablet Take 5 mg by mouth at bedtime as needed. - levonorgestrel (MIRENA) 20 mcg/24 hr (5 years) IUD 1 Each by INTRAUTERINE route one time only for 1 dose. No current facility-administered medications for this visit. REVIEW OF SYSTEMS: Pain Assessment: Pain Pain Level: 7 Pain Location: Vagina Description: Sharp Duration Amount of Time: 1 Duration Units: Months Frequency: Intermittent Intervention: Medication;Relaxation(Tramadol) General: No weight loss, malaise or fevers. Neuro: No history of TIA's, stroke, FINISHING DEPARTMENT SUPERVISOR tumor, impaired sensorium, hemiplegia, paraplegia or quadraplegia. No neurological symptoms or problems. Respiratory: (+) Former smoker. No history of current cough or dyspnea, or pneumonia in the past 6 weeks. No history of respiratory/pulmonary symptoms or problems. Cardiovascular: No history of HTN requiring medication, no history of angina, CHF, MN, cardiac surgery or stents. Denies rest pain, gangrene or revascularization/amputation for PVD. No history of cardiovascular symptoms or problems. GI: No history of GI symptoms or problems. No history of esophageal varices, recent ascites, or ETOH greater than 2 drinks per day. : See HPI. PET TRAINER: Negative for abnormal vaginal bleeding, abnormal vaginal discharge. : Denies, No LMP recorded. (Menstrual status: IUD). Endocrine: (+) Hypothyroidism on Rx; postsurgical. Denies history of diabetes. Hematology: No history of bleeding or clotting disorder. Pt is not taking anti-coagulation or platelet medications. No history of hematological symptoms or problems. Oncology: No history of CA metastasis, chemo within 30 days, or radiotherapy within 90 days. Has not lost 10% of body wt in 6 months. No history of oncological symptoms or problems. Psych: (+) Anxiety, Depression on Rx. Musculoskeletal: Negative for joint pain or swelling, back pain or muscle pain. Skin: Negative for lesions, rash and itching. Objective PHYSICAL EXAM: Ht 5' 5.5 [Patient reported[ (1.66m) Wt 185 lb (83.9kg) BMI 30.31 kg/(m2). VIDEO EXAM: (if completed, performed via video enabled technology) GENERAL: alert and appropriate, in no distress, well-hydrated, well nourished and happy, smiling, interactive SKIN: no rash noted HEAD: normocephalic, no abnormality or lesion noted RESPIRATORY: breathing non-labored and no grunting/flaring/retractions CHEST: equal chest rise with normal respiratory effort HEART: Patient able to palpate radial pulse, denies skipped beats. NEUROLOGIC: no obvious deficit Diagnostic tests reviewed for today's visit: Lab Value Units Date High Low HB No results within date range. HCT No results within date range. WBC No results within date range. PLT No results within date range. NA No results within date range. K No results within date range. GLUC No results within date range. BUN No results within date range. CREAT No results within date range. PTSEC No results within date range. INR No results within date range. APTT No results within date range. ALT No results within date range. AST No results within date range. TBILI No results within date range. TSH No results within date range. Lab Value Units Date High Low HCGQT No results within date range. UHCG No results within date range. HCG, BODY* No results within date range. Lab Value Units Date High Low ABORHD No results within date range. ABSCREEN No results within date range. No results found for: HBA1C Most recent labs Most recent EKG All in Epic Impression/Recommendations ASSESSMENT: Hypothyroidism Assessment: Taking Rx, thyroid has been kind of off - weight changes. Postsurgical due to goiter. Anxiety Assessment: Stable on Rx per patient. Depression Assessment: Stable on Rx per patient. PONV (postoperative nausea and vomiting) Assessment: Usually receives medication for nausea/vomiting. METS: Climb a flight of stairs or walk up a hill (5.50 METs) Patient denies any chest pain or undue shortness of breath with the above physical activity. ASA Class: 2 ANESTHESIA FINDINGS: Intubation History: No history of difficult intubation Significant Anesthesia Considerations: Postop nausea/vomiting Airway Exam: General: Normal appearance Mallampati Score is CLASS II ULBT: Class II - Lower incisors can bite the upper lip below the peggy line Neck: Normal appearance and function, Distance from hyoid to mentum during neck extension is at least 3 finger breaths Mouth: Normal tongue size and Mouth opening greater than 2 finger breaths Dentition: Intact Airway History: No abnormal airway history STOP BANG Score: Criteria: None Score = 0 PLAN: This patient is optimally prepared for surgery pending DOS physical exam. CONSULTS: Patient does not require consults for optimization at this time. The Following Tests/Procedures Have Been Initiated: Labs not indicated per [facility] protocol, EKG not indicated per [facility] protocol Planned Anesthetic: General Instructions Given to Patient: Patient given verbal instructions and voices comprehension and compliance. Copy sent electronically via My Chart, email, or mobile device. I spent more than 21-40 minutes [id number] with the patient and over half the time was devoted to counseling and/or coordination of care. This is a virtual visit. It required patient-provider interaction for the medical decision making as documented above. SIGNATURE: Luci Cole APRN.CNP PATIENT NAME: Frances Arizmendi DATE: June 22, 2020 TIME: 3:09 PM PAGER/CONTACT #: [facility] PROGRESSon 10-13-2017 PROGRESS HNO ID: [id number] thor: Michael Patterson (Pac), PAService: (none)Author Type: Physician AssistantType: Progress NotesFiled: 10/13/2017 8:00 AMNote Text:Forwarded patient's U/A to Dr. Mark for review, noting that patient waslast treated for UTI with Cipro on 09/22/2017 and still has her chronicsymptoms of pain and urinary frequency from interstitial cystitis. [facility] HISTORY PHYSICALon HISTORY PHYSICAL HNO ID: [id number]: Michael Patterson (Pac), PAService: (none)Author Type: Physician AssistantType: HANDPFiled: 10/12/2017 3:48 PMNote Text:HISTORY AND PHYSICAL EXAMINATIONSERVICE DATE: 10/12/2017SERVICE TIME: 3:32 PMPRIVETER[facility] PHYSICIAN: JUVENAL Bobby FOR VISIT:Frances Arizmendi is a 47 year old female who is scheduled forcystourethroscopy with bladder dilation for interstitial cystitis at [facility] Dr. Jolene Mark for consultation. My finalrecommendation will be communicated back to the requesting physician byway of shared medical record or letter.The patient has the following:ACTIVE PROBLEM LISTChronic Interstitial Cystitis With HematuriaInterstitial CystitisHypothyroidismDepressionA nxietySubjectiveCHIEF COMPLAINT: Interstitial cystitisHPI: This is a 47 year old female who complains of urinary frequency,nausea and chronic bladder pain that is up to 10/10 and stabbing, twistingquality. Her pain worsens during urination and improves for about 10minutes after urination, then starts back up again. She had bladderdilation procedures in the past which have been very helpful. Her lastprocedure was in March and gave 6 months of relief. She reportsfrequent UTIs. Her last UTI was 09/22 and treated with Cipro.PAST MEDICAL HISTORYDiagnosis Date- Anxiety- Depression- Hypothyroidism- Interstitial cystitis- Light tobacco smokerPAST SURGICAL HISTORYProcedure Laterality Date- PAST SURGICAL HISTORY OF last 03/2017 bladder dilation x 2- PAST SURGICAL HISTORY OF foot surgery for callus- PAST SURGICAL HISTORY OF axillary cyst removal (benign)- THYROIDECTOMY partial- TONSILLECTOMY HX 1985FAMILY HISTORYProblem Relation Age of Onset- None Mother- Hypertension Father- Heart Father arrhythmiaSOCIAL HISTORY:Social History Marital status: Legally Spouse name: Years of education: Number of children:Social History Main Topics Smoking status: Current Some Day Smoker Packs/day: 0.00 Years: 0.00 Smokeless tobacco: Never Used Comment: 1 pack per month - always a light/social smoker Alcohol use: No Drug use: No Sexual activity: Not CurrentlyPrior to Admission medications as of 10/12/17 1528Medication Sig Last Dose TakingbuPROPion XL (WELLBUTRIN XL) 300 mg 24 hr tablet Take 1 tablet by mouthonce daily. Yeslevothyroxine (SYNTHROID) 50 mcg tablet Take 1 tablet by mouth once daily. YesTRINTELLIX 10 mg tab Take 1 tablet by mouth once daily. YesmiSOPROStol (CYTOTEC) 200 mcg tablet Take 1 tablet by mouth twice daily.Yeslidocaine urojet (XYLOCAINE, GLYDO) 2 % jelp Apply 10 mL to affected areatwice daily as needed. Yesphenazopyridine (PYRIDIUM, GERIDIUM) 200 mg tablet Take 1 tablet by mouththree times daily as needed. YestraMADol (ULTRAM) 50 mg tablet TAKE ONE TABLET BY MOUTH TWICE A DAY ASNEEDED FOR SEVERE PAIN YesALPRAZolam (XANAX) 0.25 mg tablet Take 0.25 mg by mouth at bedtime asneeded. Yeszolpidem (AMBIEN) 5 mg tablet Take 5 mg by mouth at bedtime as needed.Yeslevonorgestrel (MIRENA) 20 mcg/24 hr (5 years) IUD 1 Each by INTRAUTERINEroute one time only for 1 dose.No medication comments found.ALLERGIESAllergen Reactions- Azithromycin Swelling tongue swelling- Erythromycin Other: See Comments Throat closed up- Penicillins Other: See Comments Throat close up- Pineapple Shortness of Breath Tongue swells- Propoxyphene Napsyl* GI Upset nausea- Sulfa (Sulfonamide * Hives- Trimethoprim HivesREVIEW OF SYSTEMS:PAIN ASSESSMENT:General: No weight loss, malaise or fevers.Neuro: No history of TIA's, stroke, FINISHING DEPARTMENT SUPERVISOR tumor, impaired sensorium,hemiplegia, paraplegia or quadraplegia. No neurological symptoms orproblems.Respiratory: Positive for Tobacco Use light/social smoker, Negative forAsthma, COPD, URI < 2 weeksCardiovascular: No history of HTN requiring medication, no history ofangina, CHF, MN, cardiac surgery or stents. Denies rest pain, gangrene orrevascularization/amputation for PVD. No history of cardiovascularsymptoms or problems.GI: No history of GI symptoms or problems. No history of esophagealvarices, recent ascites, or ETOH greater than 2 drinks per day.: See HPIGYN: Negative for abnormal vaginal bleeding, abnormal vaginal discharge. : Denies, No LMP recorded. Patient is not currently havingperiods (Reason: IUD).Endocrine: Hypothyroidism - s/p partial thyroidectomy - asymptomaticHematology: No history of bleeding or clotting disorder. Pt is not takinganti-coagulation or platelet medications. No history of hematologicalsymptoms or problems.Oncology: No history of CA metastasis, chemo within 30 days, orradiotherapy within 90 days. Has not lost 10% of body wt in 6 months. Nohistory of oncological symptoms or problems.Psych: Anxiety, DepressionMusculoskeletal: Negative for joint pain or swelling, back pain or musclepain.Skin: Negative for lesions, rash and itching.ObjectivePHYSICAL EXAM:VITALS:BP 122/82 Pulse 63 Temp (Src) 98.2 (Temporal Artery) Resp 16 Ht 5'5.5 (1.66m) Wt 171 lb (77.6kg) SpO2 100% BMI 28.01 kg/(m2).General: Alert and oriented, No acute distress, Healthy appearanceSkin: Normal color, no rash, no lesions.HEENT: EOM, pupils equal, round and reactive., No carotid bruitsCardiovascular: Normal S1 AND S2, no rubs, murmurs or gallops. No JVD.Lungs: Normal breath sounds, no wheezes or crackles.Abdomen: Soft, non-tender, no rigidity.Extremities: No deformity, no edema or tenderness, no joint swelling orclubbing.Neurological: Normal cognition and motor skills. Gait normal.Pulses: Carotid and radial pulses normal +2. Pedal pulses normal +2.Diagnostic tests reviewed for today's visit:PENDINGAssessmentASSESSMENT Patient has the following medical conditionsInterstitial cystitis and frequent UTIsLight/social smokerHypothyroidism s/p partial thyroidectomy - on Levothyroxine, asymptomaticDepressionAnxietyMETS :Climb a flight of stairs or walk up a hill (5.50 METs)Run a short distance (8.00 METs)Patient denies any chest pain or undue shortness of breath with the abovephysical activity.Runs 1-2 miles 2-3 times per weekASA Class: 3ANESTHESIA FINDINGS:Intubation History: No history of difficult intubationSignificant Anesthesia Considerations: Postop nausea/vomitingAirway Exam: General: Normal appearance Mallampati Score is CLASS II ULBT: Class II - Lower incisors can bite the upper lip below thevermillion line Neck: Normal appearance and function, Distance from hyoid to mentumduring neck extension is at least 3 finger breaths Mouth: Normal tongue size and Mouth opening greater than 2 finger breaths Dentition: IntactAirway History: No abnormal airway historySTOP BANG Score:Criteria:TiredScore = 1PLANThis patient is optimally prepared for surgery pending urine testing.CONSULTS:Patient does not require consults for optimization at this time.The Following Tests/Procedures Have Been Initiated:Orders Placed This Encounter URINALYSIS WITH MICROSCOPIC URINE CULTURE (Lab Collect) Order Specific Question: Source Answer: URINE-MIDSTREAM CLEAN CATCH buPROPion XL (WELLBUTRIN XL) 300 mg 24 hr tablet Sig: Take 1 tablet by mouth once daily. levothyroxine (SYNTHROID) 50 mcg tablet Sig: Take 1 tablet by mouth once daily. TRINTELLIX 10 mg tab Sig: Take 1 tablet by mouth once daily. levonorgestrel (MIRENA) 20 mcg/24 hr (5 years) IUD Si Each by INTRAUTERINE route one time only for 1 dose. Dispense: 1 Each Refill: 0Planned Anesthetic: GeneralInstructions Given to Patient:Patient given verbal and written preop instructions and voicescomprehension and compliance.SIGNATURE: Michael Patterson PA-C PATIENT NAME: Frances ArizmendiDATE: October 12, 2017 : 3:32 PM PAGER/CONTACT #: [facility] 10-12-2017 [facility] DAMIÁNRICHARD CHRISTINA Temple ([id number]) 1970 FDate Time Provider Department10/12/17 3:00 PM PAC [facility] During your visit today, we recorded the following information about you: Temperature Pulse Respiration Blood pressure 98.2 degrees 63/minute 16/minute 122/82 Weight Height 77.6 kg 1.664 Michael Fulton (MICHELLE Carmichael 10/12/2017 3:48 PM SignedHISTORY AND PHYSICAL EXAMINATIONSERVICE DATE: 10/12/2017SERVICE TIME: 3:32 [facility] PHYSICIAN: JUVENAL Bobby FOR VISIT:Frances Arizmendi is a 47 year old female who is scheduled for cystourethroscopywith bladder dilation for interstitial cystitis at the request of Dr. Jolene Roy for consultation. My final recommendation will be communicated backto the requesting physician by way of shared medical record or letter.The patient has the following:ACTIVE PROBLEM LISTChronic Interstitial Cystitis With HematuriaInterstitial CystitisHypothyroidismDepressionA nxietySubjectiveCHIEF COMPLAINT: Interstitial cystitisHPI: This is a 47 year old female who complains of urinary frequency, nauseaand chronic bladder pain that is up to 10/10 and stabbing, twisting quality.Her pain worsens during urination and improves for about 10 minutes afterurination, then starts back up again. She had bladder dilation procedures inthe past which have been very helpful. Her last procedure was in March andgave 6 months of relief. She reports frequent UTIs. Her last UTI was 09/22 andtreated with Cipro.PAST MEDICAL HISTORYDiagnosis Date- Anxiety- Depression- Hypothyroidism- Interstitial cystitis- Light tobacco smokerPAST SURGICAL HISTORYProcedure Laterality Date- PAST SURGICAL HISTORY OF last 03/2017 bladder dilation x 2- PAST SURGICAL HISTORY OF foot surgery for callus- PAST SURGICAL HISTORY OF axillary cyst removal (benign)- THYROIDECTOMY partial- TONSILLECTOMY HX 1984FAMILY HISTORYProblem Relation Age of Onset- None Mother- Hypertension Father- Heart Father arrhythmiaSOCIAL HISTORY:Social History Marital status: Legally Spouse name: Years of education: Number of children:Social History Main Topics Smoking status: Current Some Day Smoker Packs/day: 0.00 Years: 0.00 Smokeless tobacco: Never Used Comment: 1 pack per month - always a light/social smoker Alcohol use: No Drug use: No Sexual activity: Not CurrentlyPrior to Admission medications as of 10/12/17 1528Medication Sig Last Dose TakingbuPROPion XL (WELLBUTRIN XL) 300 mg 24 hr tablet Take 1 tablet by mouth oncedaily. Yeslevothyroxine (SYNTHROID) 50 mcg tablet Take 1 tablet by mouth once daily. YesTRINTELLIX 10 mg tab Take 1 tablet by mouth once daily. YesmiSOPROStol (CYTOTEC) 200 mcg tablet Take 1 tablet by mouth twice daily. Yeslidocaine urojet (XYLOCAINE, GLYDO) 2 % jelp Apply 10 mL to affected area twicedaily as needed. Yesphenazopyridine (PYRIDIUM, GERIDIUM) 200 mg tablet Take 1 tablet by mouth threetimes daily as needed. YestraMADol (ULTRAM) 50 mg tablet TAKE ONE TABLET BY MOUTH TWICE A DAY NEEDEDFOR SEVERE PAIN YesALPRAZolam (XANAX) 0.25 mg tablet Take 0.25 mg by mouth at bedtime as needed.Yeszolpidem (AMBIEN) 5 mg tablet Take 5 mg by mouth at bedtime as needed. Yeslevonorgestrel (MIRENA) 20 mcg/24 hr (5 years) IUD 1 Each by INTRAUTERINE routeone time only for 1 dose.No medication comments found.ALLERGIESAllergen Reactions- Azithromycin Swelling tongue swelling- Erythromycin Other: See Comments Throat closed up- Penicillins Other: See Comments Throat close up- Pineapple Shortness of Breath Tongue swells- Propoxyphene Napsyl* GI Upset nausea- Sulfa (Sulfonamide * Hives- Trimethoprim HivesREVIEW OF SYSTEMS:PAIN ASSESSMENT:General: No weight loss, malaise or fevers.Neuro: No history of TIA's, stroke, FINISHING DEPARTMENT SUPERVISOR tumor, impaired sensorium, hemiplegia,paraplegia or quadraplegia. No neurological symptoms or problems.Respiratory: Positive for Tobacco Use light/social smoker, Negative for Asthma,COPD, URI < 2 weeksCardiovascular: No history of HTN requiring medication, no history of angina,CHF, MN, cardiac surgery or stents. Denies rest pain, gangrene orrevascularization/amputation for PVD. No history of cardiovascular symptoms orproblems.GI: No history of GI symptoms or problems. No history of esophageal varices,recent ascites, or ETOH greater than 2 drinks per day.: See HPIGYN: Negative for abnormal vaginal bleeding, abnormal vaginal discharge. : Denies, No LMP recorded. Patient is not currently having periods(Reason: IUD).Endocrine: Hypothyroidism - s/p partial thyroidectomy - asymptomaticHematology: No history of bleeding or clotting disorder. Pt is not takinganti-coagulation or platelet medications. No history of hematological symptomsor problems.Oncology: No history of CA metastasis, chemo within 30 days, or radiotherapywithin 90 days. Has not lost 10% of body wt in 6 months. No history ofoncological symptoms or problems.Psych: Anxiety, DepressionMusculoskeletal: Negative for joint pain or swelling, back pain or muscle pain.Skin: Negative for lesions, rash and itching.ObjectivePHYSICAL EXAM:VITALS:BP 122/82 Pulse 63 Temp (Src) 98.2 (Temporal Artery) Resp 16 Ht 5' 5.5 (1.66m) Wt 171 lb (77.6kg) SpO2 100% BMI 28.01 kg/(m2).General: Alert and oriented, No acute distress, Healthy appearanceSkin: Normal color, no rash, no lesions.HEENT: EOM, pupils equal, round and reactive., No carotid bruitsCardiovascular: Normal S1 AND S2, no rubs, murmurs or gallops. No JVD.Lungs: Normal breath sounds, no wheezes or crackles.Abdomen: Soft, non-tender, no rigidity.Extremities: No deformity, no edema or tenderness, no joint swelling orclubbing.Neurological: Normal cognition and motor skills. Gait normal.Pulses: Carotid and radial pulses normal +2. Pedal pulses normal +2.Diagnostic tests reviewed for today's visit:PENDINGAssessmentASSESSMENT Patient has the following medical conditionsInterstitial cystitis and frequent UTIsLight/social smokerHypothyroidism s/p partial thyroidectomy - on Levothyroxine, asymptomaticDepressionAnxietyMETS :Climb a flight of stairs or walk up a hill (5.50 METs)Run a short distance (8.00 METs)Patient denies any chest pain or undue shortness of breath with the abovephysical activity.Runs 1-2 miles 2-3 times per weekASA Class: 3ANESTHESIA FINDINGS:Intubation History: No history of difficult intubationSignificant Anesthesia Considerations: Postop nausea/vomitingAirway Exam: General: Normal appearance Mallampati Score is CLASS II ULBT: Class II - Lower incisors can bite the upper lip below the vermillionline Neck: Normal appearance and function, Distance from hyoid to mentum duringneck extension is at least 3 finger breaths Mouth: Normal tongue size and Mouth opening greater than 2 finger breaths Dentition: IntactAirway History: No abnormal airway historySTOP BANG Score:Criteria:TiredScore = 1PLANThis patient is optimally prepared for surgery pending urine testing.CONSULTS:Patient does not require consults for optimization at this time.The Following Tests/Procedures Have Been Initiated:Orders Placed This Encounter URINALYSIS WITH MICROSCOPIC URINE CULTURE (Lab Collect) Order Specific Question: Source Answer: URINE-MIDSTREAM CLEAN CATCH buPROPion XL (WELLBUTRIN XL) 300 mg 24 hr tablet Sig: Take 1 tablet by mouth once daily. levothyroxine (SYNTHROID) 50 mcg tablet Sig: Take 1 tablet by mouth once daily. TRINTELLIX 10 mg tab Sig: Take 1 tablet by mouth once daily. levonorgestrel (MIRENA) 20 mcg/24 hr (5 years) IUD Si Each by INTRAUTERINE route one time only for 1 dose. Dispense: 1 Each Refill: 0Planned Anesthetic: GeneralInstructions Given to Patient:Patient given verbal and written preop instructions and voices comprehensionand compliance.SIGNATURE: Michael Patterson PA-C PATIENT NAME: Frances ArizmendiDATE: October 12, 2017 : 3:32 PM PAGER/CONTACT #:Michael Patterson (Pac)MICHELLE 10/12/2017 3:40 PM SignedPATIENT PREOPERATIVE INSTRUCTIONSJolene Mark MD has scheduled you for your procedure at this surgerycenter:[facility]: [phone] -[id number] [place], [place] [address]Location is near [facility].Please read below carefully for your personalized instructions.Blood Thinning Medications:- Stop NSAIDS (Ibuprofen, Advil, Aleve, Motrin, Celebrex, Mobic, etc.) 7 daysbefore surgery, as directed by your surgeon.- Stop Aspirin 7 days before surgery, as directed by your surgeon.- Stop Vitamin E, ALL multi-vitamins, herbals and dietary supplements 7 daysbefore surgery.- You may take Tylenol (Acetaminophen) or any of your pain medications that donot contain aspirin or NSAIDS as needed.Dietary Restrictions:- No solid food after midnight.- You may have 12 ounces of clear liquids (water, clear juices such as applejuice or gatorade, carbonated beverages, clear tea, black coffee, jello) until2 hours before scheduled arrival at facility.Medications:Approved medications to take the morning of surgery with a sip of water:Bupropion, Levothyroxine, TrintellixIf you start any new medications after today's visit, please contact thergery center above.Important Reminders:- Candy, mints, gum and tobacco products are NOT permitted the morning ofsurgery.- Hearing aids, dentures and glasses may be worn the morning of surgery.- NO jewelry, body piercings, makeup, nail nepali, hairpins or contacts are spencer worn the day of surgery.If you develop symptoms such as a fever, cold, or flu, or have other changes toyour health within TWO DAYS of scheduled surgery or the morning of surgery,please contact the surgery center above.Personal Belongings:- Leave ALL valuables and money at home or with family members.For Outpatient Procedures: - YOU MUST HAVE A RESPONSIBLE SOCIAL WORK INSTRUCTOR TAKE YOU HOME. A DEAN OF WOMEN OR CABDRIVER CANNOT BE MADE A RESPONSIBLE SOCIAL WORK INSTRUCTOR.- We recommend that a responsible person stays with you overnight to take careof you.- You cannot stay in a hotel alone after outpatient surgery. You will not bepermitted to have your surgery, if you do not have someone to take care of you. Arrival Time for Surgery:- The Surgery Center or hospital where you are having surgery will call theafternoon before surgery (or Thursday for Thursday surgery) with a scheduledarrival time.- If you have not heard by 4 pm, please contact the surgery center above.Please be aware that emergency situations arise, which may delay or change yoursurgical time. If this happens, we will notify you as soon as possible andregret any inconvenience.MICHELLE Figueredo-Michael Sam (Pac)MICHELLE 10/13/2017 8:00 AM AddendumForwarded patient's U/A to Dr. Mark for review, noting that patient was lasttreated for UTI with Cipro on 09/22/2017 and still has her chronic symptoms ofpain and urinary frequency from interstitial cystitis.Referring Provider: JOLENE MARK [[id number]]Allergies As of Date: 10/12/2017 Noted Allergy ReactionAZITHROMYCIN 04/04/2016 7 - Swelling Comments: tongue swellingERYTHROMYCIN 11/20/2015 14 - Other: See Comments Comments: Throat closed upPENICILLINS 11/20/2015 14 - Other: See Comments Comments: Throat close upPINEAPPLE 11/20/2015 12 - Shortness of Breath Comments: Tongue swellsPROPOXYPHENE NAPSYLATE 04/04/2016 8 - GI Upset Comments: nauseaSULFA (SULFONAMIDE ANTIBIOTICS) 11/20/2015 4 - HivesTRIMETHOPRIM 04/04/2016 4 - HivesDate Reviewed: 05/14/2018Reviewed by: Michael Patterson ([facility]), PA - Fully AssessedReason for Visit: Cystitis [1084]Primary Visit Diagnosis:Preop examination [Z01.818] Other Visit Diagnoses:Interstitial cystitis [N30.10] Frequency of urination [R35.0] Depression, unspecified depression type [F32.9] Anxiety [F41.9] Hypothyroidism, unspecified type [E03.9] Tobacco use [Z72.0]Order(s):URINALYSIS WITH MICROSCOPIC [SQUAWMIC] Order #: [id number] FUTURE URINE CULTURE [SQURCUL] Order #: [id number] FUTURE levonorgestrel (MIRENA) 20 mcg/24 hr (5 years) IUD1 Each by INTRAUTERINE route one time only for 1 dose.Disp: 1 EachRfl: 0Prescriptions as of 10/12/2017 Sig: BUPROPION XL 300 MG 24 HR TAB Take 1 tablet by mouth once d* LEVOTHYROXINE 50 MCG TABLET Take 1 tablet by mouth once d* TRINTELLIX 10 MG TABLET Take 1 tablet by mouth once d* MISOPROSTOL 200 MCG TABLET Take 1 tablet by mouth twice * LIDOCAINE 2 % MUCOUS MEMBRANE* Apply 10 mL to affected area * PHENAZOPYRIDINE 200 MG TABLET Take 1 tablet by mouth three * TRAMADOL 50 MG TABLET TAKE ONE TABLET BY MOUTH TWIC* ALPRAZOLAM 0.25 MG TABLET Take 0.25 mg by mouth at bedt* ZOLPIDEM 5 MG TABLET Take 5 mg by mouth at bedtime* LEVONORGESTREL 20 MCG/24 HR (* 1 Each by INTRAUTERINE route *Problem List As Of Date 10/12/2017 Noted Resolved Chronic interstitial cystitis with hematuria [N*INVALID FOR* Interstitial cystitis [N30.10] INVALID FOR* More... Hypothyroidism [E03.9] INVALID FOR* Depression [F32.9] INVALID FOR* Anxiety [F41.9] INVALID FOR* Other instructions from your clinician: PATIENT PREOPERATIVE INSTRUCTIONS Jolene Mark MD has scheduled you for your procedure at this surgery center: [facility]: [phone] --[id number] [place] [address] Location is near [facility]. Please read below carefully for your personalized instructions. Blood Thinning Medications: - Stop NSAIDS (Ibuprofen, Advil, Aleve, Motrin, Celebrex, Mobic, etc.) 7 days before surgery, as directed by your surgeon. - Stop Aspirin 7 days before surgery, as directed by your surgeon. - Stop Vitamin E, ALL multi-vitamins, herbals and dietary supplements 7 days before surgery. - You may take Tylenol (Acetaminophen) or any of your pain medications that do not contain aspirin or NSAIDS as needed. Dietary Restrictions: - No solid food after midnight. - You may have 12 ounces of clear liquids (water, clear juices such as apple juice or gatorade, carbonated beverages, clear tea, black coffee, jello) until 2 hours before scheduled arrival at facility. Medications: Approved medications to take the morning of surgery with a sip of water: Bupropion, Levothyroxine, Trintellix If you start any new medications after today's visit, please contact the surgery center above. Important Reminders: - Candy, mints, gum and tobacco products are NOT permitted the morning of surgery. - Hearing aids, dentures and glasses may be worn the morning of surgery. - NO jewelry, body piercings, makeup, nail nepali, hairpins or contacts are to be worn the day of surgery. If you develop symptoms such as a fever, cold, or flu, or have other changes to your health within TWO DAYS of scheduled surgery or the morning of surgery, please contact the surgery center above. Personal Belongings: - Leave ALL valuables and money at home or with family members. For Outpatient Procedures: - YOU MUST HAVE A RESPONSIBLE SOCIAL WORK INSTRUCTOR TAKE YOU HOME. A DEAN OF WOMEN OR RADIO DISC JOCKEY CANNOT BE MADE A RESPONSIBLE SOCIAL WORK INSTRUCTOR. - We recommend that a responsible person stays with you overnight to take care of you. - You cannot stay in a hotel alone after outpatient surgery. You will not be permitted to have your surgery, if you do not have someone to take care of you. Arrival Time for Surgery: - The Surgery Center or hospital where you are having surgery will call the afternoon before surgery (or Thursday for Thursday surgery) with a scheduled arrival time. - If you have not heard by 4 pm, please contact the surgery center above. Please be aware that emergency situations arise, which may delay or change your surgical time. If this happens, we will notify you as soon as possible and regret any inconvenience. MICHELLE Figueredo-CPrescriptions ordered this encounter Disp Refills Start End LEVONORGESTREL 20 MCG/24 HR (5 YEARS* 1 Ea* 0 10/12/2017 10/12/2017 Class: Med Update Route: INTRAUTERINE Si Each by INTRAUTERINE route one time only for 1 dose.Medications Discontinued During This Encounter oxyCODONE-acetaminophen (PERCOCET) 5* 9 ta* 0 03/30/2017 10/12/2017 Class: Print RX Route: ORAL Sig: Take 1 tablet by mouth every 4 hours as needed for Pain. Disc: Course of therapy completed docusate sodium (COLACE) 100 mg caps* 60 c* 0 03/30/2017 10/12/2017 Class: Print RX Route: ORAL Sig: Take 1 capsule by mouth twice daily. Disc: Course of therapy completed diazePAM (VALIUM) 10 mg tablet 60 t* 5 03/04/2016 10/12/2017 Class: Print RX Route: ORAL Sig: Take 1 tablet by mouth twice daily. Disc: Course of therapy completed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 cholecalciferol (Vitamin D-3) 125 MCG (5000 UT) capsule, Take 125 mcg by mouth in the morning., Disp: , Rfl: diazePAM (Valium) 10 MG tablet, TAKE 1 TABLET BY MOUTH TWICE DAILY NEEDED FOR UP TO 30 DAYS., Disp: , Rfl: estradiol (Estrace) 0.1 MG/GM vaginal cream, Vaginally., Disp: , Rfl: nitrofurantoin, macrocrystal-monohydrate, (Macrobid) 100 MG capsule, TAKE 1 CAPSULE BY MOUTH TWO TIMES A DAY FOR 3 DAYS. TO SELF-START WHEN YOU THINK YOU HAVE SYMPTOMS OF A BLADDER INFECTION, Disp: , Rfl: phenazopyridine (Pyridium) 100 MG tablet, Take 100 mg by mouth in the morning and 100 mg at noon and 100 mg in the evening. Take with meals., Disp: , Rfl: polyethylene glycol, PEG, 3350 (MiraLax) 17 g packet, Take 17 g by mouth., Disp: , Rfl: traMADol (Ultram) 50 MG tablet, Take 50 mg by mouth every 12 (twelve) hours if needed, Disp: , Rfl: ALBUTEROL IN, Inhale 1 puff., Disp: , Rfl: buPROPion XL (Wellbutrin XL) 300 MG 24 hr tablet, Take 1 tablet (300 mg) by mouth 1 (one) time each day at the same time, Disp: , Rfl: doxycycline (Vibramycin) 100 MG capsule, Take 100 mg by mouth in the morning and 100 mg before bedtime., Disp: , Rfl: FLUoxetine (PROzac) 20 MG capsule, Take 1 capsule (20 mg) by mouth Daily, Disp: , Rfl: pantoprazole (Protonix) 20 MG EC tablet, Take 1 tablet (20 mg) by mouth in the morning. Take before meals. Do not crush, chew, or split.., Disp: , Rfl: phenazopyridine (Pyridium) 200 MG tablet, Take 200 mg by mouth every 8 (eight) hours if needed., Disp: , Rfl: zolpidem (Ambien) 5 MG tablet, Take 1 tablet (5 mg) by mouth as needed at bedtime for sleep, Disp: 30 tablet, Rfl: 2 RECENT VITAL SIGNS 01/09/2023 10:52 AM 03/24/2023 10:13 AM 05/08/2023 8:04 AM 06/08/2023 8:27 AM 07/27/2023 9:53 AM 10/22/2023 10:09 AM 01/25/2024 10:14 AM Vitals BMI 32.38 kg/m2 31.5 kg/m2 30.87 kg/m2 36.09 kg/m2 36.33 kg/m2 31.37 kg/m2 32.51 kg/m2 BSA (m2) 2.01 m2 2.01 m2 1.99 m2 1.88 m2 1.89 m2 2 m2 2.04 m2 Systolic 124 126 138 118 126 110 122 Diastolic 72 80 84 78 80 70 62 Heart Rate 82 72 94 86 76 64 58 SpO2 96 % 97 % 97 % 97 % 99 % 96 % 98 % Temp 97.3 F 97.1 F 96.7 F 97.2 F 96.9 F 97.7 F 97.2 F Height (in) 5' 5 5' 5.5 5' 5.5 5' 5' 5' 5.5 5' 5.5 Weight (lb) 194.6 192.2 188.4 184.8 186 191.4 198.4 Visit Report Report Report Report Report Report Report Report OBJECTIVE Physical Exam Vitals and nursing note reviewed. Constitutional: Appearance: Normal appearance. She is normal weight. HENT: Head: Normocephalic and atraumatic. Right Ear: Tympanic membrane, ear canal and external ear normal. Left Ear: Tympanic membrane, ear canal and external ear normal. Nose: Nose normal. Mouth/Throat: Mouth: Mucous membranes are moist. Eyes: Pupils: Pupils are equal, round, and reactive to light. Cardiovascular: Rate and Rhythm: Normal rate and regular rhythm. Pulses: Normal pulses. Heart sounds: Normal heart sounds. Pulmonary: Effort: Pulmonary effort is normal. Breath sounds: Normal breath sounds. Abdominal: General: Bowel sounds are normal. Palpations: Abdomen is soft. Musculoskeletal: General: Normal range of motion. Cervical back: Normal range of motion. Skin: General: Skin is warm and dry. Capillary Refill: Capillary refill takes less than 2 seconds. Neurological: General: No focal deficit present. Mental Status: She is alert and oriented to person, place, and time. Psychiatric: Mood and Affect: Mood normal. ASSESSMENT/PLAN Diagnoses and all orders for this visit: Major depressive disorder, recurrent, moderate (HCC) (CMS/HCC) Neutropenia, unspecified (CMS/HCC) Primary insomnia - zolpidem (Ambien) 5 MG tablet; Take 1 tablet (5 mg) by mouth as needed at bedtime for sleep Cigarette nicotine dependence without complication Mixed anxiety and depressive disorder - buPROPion XL (Wellbutrin XL) 300 MG 24 hr tablet; Take 1 tablet (300 mg) by mouth 1 (one) time each day at the same time - FLUoxetine (PROzac) 20 MG capsule; Take 1 capsule (20 mg) by mouth Daily Gastroesophageal reflux disease, unspecified whether esophagitis present - pantoprazole (Protonix) 20 MG EC tablet; Take 1 tablet (20 mg) by mouth in the morning. Take before meals. Do not crush, chew, or split.. FOLLOW-UP Follow up in about 4 weeks (around 02/22/2024) for Next scheduled follow-up: WT MNG . documented in this encounter [facility] 01-25-2024 Instructions Mounika Russo NP - 01/25/2024 9:40 AM EDT PATIENT EDUCATION: Depression Discussed side effects of medications. Notify physician's office if worsening depression, suicidal thoughts, and allergic reactions. Avoid use of other drugs, including alcohol. It may take 4-6 weeks before seeing improvement of symptoms. Do not stop medication abruptly to avoid serotonin withdrawal symptoms. There are a number of treatments for depression including psychotherapy, support groups, and psychiatric antidepressant medications. Try to get 8 hours of sleep per night. A lack of sleep increases risk for mental disturbances of all kinds. Daily exercise is recommended; exercise naturally increases the concentration of neurotransmitters such as serotonin. Build loving and accepting family/friend relationships. Use positive psychology. Meditation can be helpful because it calms and relaxes both the mind and body. There are many books, internet articles and free apps that you can download to guide you in meditation exercises. Insomnia 1) Cognitive behavioral therapy is beneficial in identifying the underlying cause of insomnia. 2) Sleep hygiene and relaxation techniques. Sleep hygiene involves the development of habits conducive to sleep, such as maintaining regular bedtimes and rise times, avoiding daytime naps, avoiding alcohol and electronic devices before bedtime, and avoiding caffeine. Progressive relaxation therapy involves the tensing and relaxation of muscles systematically from head to toe. Guided imagery and meditation instructs you how to replace anxiety-ridden thoughts with pleasant, restful imagery. Music interventions, notably music-associated relaxation and listening to music, have been reported to improve sleep for adults with insomnia unrelated to underlying health conditions. 3) No blue screens an hour prior to lying down. Patient advised to take medication as directed, and to call office if no relief occurs. 4) Follow up as discussed to assess medication efficacy. [place] reviewed. Avoiding mixing hypnotics with other controlled substances, muscle relaxers, alcohol and drugs as the risk for overdose increases substantially. Patient verbalized understanding and will attempt to do as instructed. Smoking cessation 1) Smoking/tobacco cessation is the most important action for your future health 2) Smoking increasing risks of secondhand smoke to family/friends elevating their risk for health conditions. 3) Counseling offers patients support, problem solving, and advice on the use of medications and prevention or management of relapse. 4) People who use smokeless tobacco products (snuff, ground, or chewing tobacco) are at risk for nicotine addiction, periodontal disease, and cancer. Frequent oral exams that include feedback by dentists or dental hygienists are recommended. 5) Tobacco cessation advised. Pharmacological options for assistance with tobacco cessation offered. Anxiety 1) Cognitive Behavioral Therapy (CBT) for anxiety/panic disorder involves a combination of education, self-monitoring, relaxation training, challenging negative styles of thinking, situational exposure training, and systematic exposure to uncomfortable physical sensations. CBT can be used alone without pharmacotherapy, or may be used as an adjunct to any form of pharmacotherapy 2) Panic is an understandable reaction to perceived danger (the fight or flight response). Fear arises from the misinterpretation of normal body sensations. It is important to link symptoms and interpret anxiety with arrows in a vicious [place] . It is important to appreciate that the first goal of treatment is not to remove all anxiety, only to manage it successfully. Attempts to cope by avoidance or safety seeking are understandable, but inadvertently lead to maintaining the problem. 3) Several mental health apps have been developed for panic and anxiety-related conditions. Internet-based self-help programs have been developed to improve access to evidence-based treatment principles for panic symptoms for patients unable to access treatment with a clinician. 4) Use medication as directed. Counseling recommended. Please report to the emergency room for any suicidal/homicidal ideation. Patient strongly encouraged to avoid alcohol and drug substances while on medications. This can cause adverse reactions and ineffectiveness of medications. [place] reviewed as necessary for use of controlled substances. GERD Discussed life-style modifications to reduce acid reflux. Avoid eating 2-3 hours prior to bed time, avoid spicy, greasy, high fat foods. Elevate head of bed when possible or elevate head on multiple pillows. Continue with current drug therapy, if symptoms begin to break through, call office for GI referral. Patient encouraged to also use ProBiotics for any bowel changes. documented in this encounter [facility] 09-02-2023 Note HNO ID: [id number] Author: GILMA LEWIS RN Service: ? Author Type: Registered Nurse Type: Nursing Progress Note Filed: 09/02/2023 17:12 Note Text: [id number]- Dr. Mark at bedside to assess and speak with patient. Kevin Lewis RN [facility] 09-02-2023 Note HNO ID: [id number] Author: PURNIMA DACOSTA AA Service: ? Author Type: Tactical/Mobile Watch Officer Type: Anesthesia Procedure Notes Filed: 09/02/2023 15:59 Note Text: ANESTHESIOLOGY PROCEDURE NOTE Airway General Information Procedure Start Time/Medication Administration: 09/02/2023 3:56 PM Patient location during procedure: OR Timeout Performed Pre-procedure: timeout performed Consent Obtained: Yes Patient identity confirmed: arm band and patient Staffing CAA: Purnima Dacosta AA Indications and Patient Condition Indications for airway management: anesthesia Preoxygenated: yes anesthesia circuit Method: asleep Cricoid Pressure: No Manual In-Line Stabilization: No Difficult Mask: No Final Airway Details Final airway type: supraglottic airway Number of attempts at approach: 1 Final Supraglottic Airway: i-gel Size 4 Seal Adequate: yes Failed airway: no Airway not difficult SIGNATURE: JANETT Baugh PATIENT NAME: Frances Arizmendi DATE: September 02, 2023 TIME: 3:58 PM CSN: [id number] [facility] 09-02-2023 Nurse Note [id number]- Dr. Mark at bedside to assess and speak with patient. Kevin Lweis RN documented in this encounter [facility] 09-02-2023 Hospital Discharge instructions Bailey Campos MD - 09/02/2023 3:56 PM EDT My Hospital Stay and Summary This is a summary of your hospital stay. Please read it carefully and share it with your family and healthcare providers. Date of Admission: 09/02/2023 Date of Discharge: 09/02/2023 Where I Will be Going after Discharge: Home with Self Care My Condition at Discharge: Stable My Doctors and Medical Team: My Main Hospital Doctor: Jolene Mark MD My Primary Care Physician (Family Doctor): Rajendra Sellers MD Other Medical Team Members: Residents and [place] The Reason I was in the Hospital/Main Diagnosis: Bladder botox, cystoscopy Summary of What Happened When in the Hospital: Surgery and/or post-operative care Other Problem(s)/Diagnosis: * No active hospital problems. * Operations Performed While in the Hospital: Procedure(s) and Anesthesia Type: * CYSTOSCOPY - General * HYDRODISTENTION BLADDER - General * BLADDER IRRIGATION, SIMPLE, INSTILLATION- LIDOCAINE - General * INJECTION BOTOX- 200 UNITS - General Important Tests/Procedures: None Instructions for My Care at Home or Healthcare Facility These instructions explain what you or your pharmacy care coordinator need to do to continue your care at home or at another healthcare facility Please go over these instructions with your nurse and pharmacy care coordinator. If you are not sure about something, please ask. Additional Health Information I Need to Know After I Leave the Hospital: See attached sheet for additional instructions. Pain Management: Tylenol as needed for pain Diet (What I Can Eat): (Alcohol: Do not drink alcoholic beverages while taking narcotics. Otherwise, you may consume them in moderation.) Regular Activity and Exercise: (When I can Drive, Return to Work) Activity: avoid heavy lifting for 1-2 weeks after surgery Follow-Up Appointment Reminders: (A list of any scheduled appointments is at the top of this document and/or listed here) We do our very best to schedule post-operative visits before discharge. The best way to confirm your appointment details is with the surgeon s office during regular business hours. These appointments can also be found on [employer]. Important Phone Numbers to make appointments: Urology Office and Appointment Line: [phone] [facility] (Not Urology) Appointment Line: [phone] [facility] Radiology: [phone] [facility] Interventional Radiology: [phone] Outpatient Lab: [phone] or [phone] Test Results Not Available at this Time: No pending results No follow-ups on file. REMEMBER: If you experience pain, swelling, drainage, difficulty in breathing, excessive bleeding, persistent nausea, vomiting or fever contact your doctor's office During non-office hours call: and ask drilling field operator to page your doctor's [id number]-[id number]. OR: Go to the nearest Emergency Room if you feel any signs of symptoms that warrant physicians immediate attention. documented in this encounter [facility] 09-02-2023 History and physical note UPDATED HISTORY AND PHYSICAL EXAMINATION SERVICE DATE: 09/02/2023 SERVICE TIME: PHYSICAL EXAM MUST BE COMPLETED ON ADMISSION The History and Physical (completed in the past 30 days) has been reviewed and the patient has been examined. The contents accurately reflect the patient's condition with the following additions or revisions since the H&P was completed. Examination indicates no changes. This H&P can be found in the Electronic Medical Record. Neuro - Alert CV - RRR Lungs - no audible wheezes noted SIGNATURE: Jolene Mark MD PATIENT NAME: Frances Arizmendi DATE: September 02, 2023 TIME: 3:22 PM documented in this encounter [facility] 08-20-2023 Instructions Tyson Villarreal, REINFORCING ROD LAYER.MANAGER BOOKS - 08/20/2023 10:39 AM EDT PATIENT PREOPERATIVE INSTRUCTIONS Jolene Mark MD [facility] [phone] --[id number] [place] [address] Location is near [facility]. Please read below carefully for your personalized instructions. Dietary Restrictions: - No solid food after midnight. - You may have 12 ounces of clear liquids (water, clear juices such as apple juice or gatorade, carbonated beverages, clear tea, black coffee, jello) until 2 hours before scheduled arrival at facility. Medications: Unless instructed differently below, stay on all of your medications until your surgery. If you start any new medications after today's visit, please contact your surgeon. Please take these medications the morning of surgery: Bupropion(Wellbutrin), Fluoxetine(Prozac), Levothyroxine(Synthroid) and Xanax as needed If you start any new medications after today's visit, please contact the surgeon's office. Blood Thinning Medications: - Stop NSAIDS (Ibuprofen, Advil, Aleve, Motrin, Celebrex, Mobic, etc.) 7 days before surgery, as directed by your surgeon. - Stop Aspirin 7 days before surgery, as directed by your surgeon. - Stop Vitamin E, ALL multi-vitamins, herbals and dietary supplements 7 days before surgery. - You may take Tylenol (Acetaminophen) or any of your pain medications that do not contain aspirin or NSAIDS as needed. Important Reminders: - Candy, mints, and tobacco products are NOT permitted the morning of surgery. - Hearing aids, dentures and glasses may be worn the morning of surgery. - NO jewelry, body piercings, makeup, hairpins or contacts are to be worn the day of surgery. If you develop symptoms such as a fever, cold, or flu, or have other changes to your health within TWO DAYS of scheduled surgery or the morning of surgery, please contact the surgery center above. Personal Belongings: -Please have photo ID and insurance cards. -If you do not have a copy of advance directives on file with us, please bring a copy with you on the day of surgery. - Leave ALL valuables and money at home or with family members. For Outpatient Procedures: - YOU MUST HAVE A RESPONSIBLE SOCIAL WORK INSTRUCTOR TAKE YOU HOME. A DEAN OF WOMEN OR RADIO DISC JOCKEY CANNOT BE MADE A RESPONSIBLE SOCIAL WORK INSTRUCTOR. - We recommend that a responsible person stays with you overnight to take care of you. - You cannot stay in a hotel alone after outpatient surgery. You will not be permitted to have your surgery, if you do not have someone to take care of you. Arrival Time for Surgery: - The Surgery Center or hospital where you are having surgery will call the afternoon before surgery (or Thursday for Thursday surgery) with a scheduled arrival time. - If you have not heard by 4 pm, please contact the surgery center above. Please be aware that emergency situations arise, which may delay or change your surgical time. If this happens, we will notify you as soon as possible and regret any inconvenience. If you already have an Advance Directive, please fax a copy to [phone] or email to for it to be added to your chart. If you do not have an Advance Directive, you can find the appropriate form and more information at [email or web address]. We recommend that you complete the Advance Directive form found on the website and bring it with you the day of your surgery. It can be witnessed and scanned into your chart that day. Tyson Villarreal [email or web address] documented in this encounter [facility] 08-20-2023 History and physical note PREANESTHESIA CONSULT CLINIC TELEHEALTH VISIT SERVICE DATE: 08/20/2023 SERVICE TIME: 10:29 AM Patient has been identified by name and date of : Yes Reason for contact: PACC visit Accompanied by: Self This is a virtual visit using [employer] Video Visit. It required patient-provider interaction for the medical decision making as documented below. I have communicated my name and active licensure. The patient's identity and physical location were verified at the time of this visit. Either the patient or their legal medical claims representative has been informed of the risks and benefits of and alternatives to treatment through a remote evaluation and consents to proceed with the evaluation remotely. PRIMARY CARE PHYSICIAN: Rajendra Sellers MD REASON FOR VISIT: Frances Arizmendi is a 53 year old female who is scheduled for CYSTOSCOPY HYDRODISTENTION BLADDER BLADDER IRRIGATION, SIMPLE, INSTILLATION- LIDOCAINE INJECTION BOTOX- 200 UNITS at the request of Dr. Jolene Mark for consultation. My final recommendation will be communicated back to the requesting physician by way of shared medical record or letter. Assessment Patient has the following medical conditions which may affect josiah-operative course: Former smoker Assessment: Former Smoker quit in 2019 0.5 ppd x 18 years PONV (postoperative nausea and vomiting) Assessment: patient states gets PONV with Anesthesia Hypothyroidism Assessment: s/p Thyroidectomy on Levothyroxine(Synthroid) Depression Assessment: stable on medication Follows with Psych managing medications Denies any suicidal ideations Ferreira Activity Status Index: METS: Walk indoors, such as around the house (1.75 METs) Do light work around the house, such as dusting or washing dishes (2.70 METs) Take care of self; that is eating, dressing, bathing, using the toilet (2.75 METs) Walk a block or two on level ground (2.75 METs) Do moderate work around the house, such as vacuuming, sweeping floors, or carrying in groceries (3.50 METs) Do yardwork, such as raking leaves, weeding, or pushing a power mower (4.50 METs) Climb a flight of stairs or walk up a hill (5.50 METs) DASI Score: 23.45 Patient denies any chest pain or undue shortness of breath with the above physical activity. Clinical Frailty Scale: 2. Well STOP-Bang Score: Patient over 50 years old Denies snoring loudly Denies feeling tired, fatigued, or sleepy during the daytime Has not been observed to stop breathing or choking/gasping during sleep Denies having high blood pressure BMI less than or equal to 35 kg/m^2 Does not have a large neck Non-male patient STOP-Bang Score: 1 [id number] Score: Age: <65 Sex: female CHF history: No Hypertension history: No Stroke/TIA/thromboembolism history: No Vascular disease history: No Diabetes history: No [id number] Score: 1 ARISCAT Score: Age: 51-80 Respiratory infection in the last month: No Preoperative anemia: Yes Surgical incision: peripheral Duration of surgery: <2 hrs Emergency procedure: No ARISCAT Score: ANESTHESIA FINDINGS: Intubation History: No history of difficult intubation. No abnormal airway history Significant Anesthesia Considerations: potential postop nausea/vomiting Airway History: No history of difficult airway No abnormal airway history I - PHYSICAL EVALUATION AIRWAY Patient intubated: No. Tracheostomy tube not present Mallampati: II. TM distance: >3 FB. Neck ROM: full ROM without neurological symptoms. Mouth opening: adequate. Thick neck: no Lazcano present: no Lip Bite Test: I Microretrognathia/Micronagthia/Re cessed Chin: No DENTAL Dental findings: teeth intact. II - ANESTHESIA PLAN Anesthetic plan additional comments: *PACC/TCI - anesthesia choice. Beta Dylon Monitoring Plan Post Procedure Analgesic Plan Prepared for surgery: This patient is optimally prepared for surgery. CONSULTS: Patient does not require consults for optimization at this time. The Following Tests/Procedures Have Been Initiated: Labs not indicated per PACC protocol, EKG not indicated per PACC protocol Planned Anesthetic: Per anesthesia choice Subjective CHIEF COMPLAINT: Interstitial Cystitis HPI: 53 year old female who presents with interstitial cystitis with a history of this procedure in the past with good success. Last Surgery 03/25/2023. Conservative measures have been ineffective. Patient has opted to proceed with above reccommended surgery and is here today for preanesthesia consultation. PAST MEDICAL HISTORY Diagnosis Date Anxiety Depression Hypothyroidism Interstitial cystitis Light tobacco smoker PONV (postoperative nausea and vomiting) PAST SURGICAL HISTORY Procedure Laterality Date BLADDER SURGERY HX 2017 x 2 CYSTOSCOPY,DIL BLADDER,LOCAL ANESTH 06/2020 CYSTOSCOPY,DIL BLADDER,LOCAL ANESTH 03/25/2023 EXCISION AXILLARY LYMPH NODE Benign FOOT SURGERY HX Callus removal THYROIDECTOMY SUBTOTAL/PARTIAL 2017 TONSILLECTOMY HX 1985 VAGINAL HYSTERECTOMY FAMILY HISTORY Problem Relation Age of Onset None Mother Hypertension Father Heart Father arrhythmia Anesthesia Problems No Family History SOCIAL HISTORY: Social History Tobacco Use Smoking status: Former Packs/day: 0.50 Years: 18.00 Additional pack years: 0.00 Total pack years: 9.00 Types: Cigarettes Start date: 06/22/2001 Quit date: 10/31/2019 Years since quittin.8 Smokeless tobacco: Never Vaping Use Vaping Use: Never used Substance Use Topics Alcohol use: Yes Comment: 2 glasses a month Drug use: No Prior to Admission medications as of 08/20/23 1027 Medication Sig Last Dose Taking buPROPion XL (WELLBUTRIN XL) 300 mg 24 hr tablet Take 300 mg by mouth. Taking Yes ALPRAZolam (XANAX) 0.25 mg tablet Take by mouth every 12 hours. Taking Yes pantoprazole DR (PROTONIX) 20 mg tablet Take 20 mg by mouth. Taking Differently Yes Phentermine HCl 37.5 mg tablet TAKE 1 TABLET (37.5 MG) BY MOUTH IN THE MORNING. TAKE BEFORE MEALS. Taking Yes phenazopyridine (PYRIDIUM) 200 mg tablet Take 1 tablet by mouth three times a day as needed. For up to 3 days. Extra tablets given for self start Taking Yes diazePAM (VALIUM) 10 mg tablet Take 1 tablet by mouth twice daily as needed for up to 30 days. Yes traMADol (ULTRAM) 50 mg tablet Take 1 tablet by mouth twice daily for 240 doses. Yes lidocaine urojet (XYLOCAINE, GLYDO) 2 % jelp Apply 10 mL to affected area twice daily as needed. Taking Yes Cholecalciferol, Vitamin D3, 125 mcg (5,000 unit) cap Take 1 capsule by mouth once daily. Taking Yes FLUoxetine (PROZAC) 20 mg capsule Take 1 capsule by mouth daily at bedtime. Taking Yes ALBUTEROL SULFATE INHALATION Inhale 1 Puff as instructed as needed. Taking Yes docusate sodium (COLACE) 100 mg capsule Take 1 capsule by mouth twice daily. Patient taking differently: Take 100 mg by mouth as needed. Taking Yes levothyroxine (SYNTHROID) 50 mcg tablet Take 1 tablet by mouth once daily. Taking Yes zolpidem (AMBIEN) 5 mg tablet Take 5 mg by mouth at bedtime as needed. Taking Yes Medication Comments documented by Miriam Ward, RN on 02/17/2018 at 1745. Current daily medications: Cytotec, Synthroid, Mirena, Colace, Atapex, Estradiol, and Wellbutrin. PRN Ambien and Xanax. February 17, 2018 Miriam Ward RN ALLERGIES Allergen Reactions Asa [Aspirin] Other: See Comments Bladder irritation Azithromycin Swelling tongue swelling Erythromycin Other: See Comments Throat closed up Nsaids (Non-Steroid* Other: See Comments, GI Upset Bladder irritation Other reaction(s): Interstitial cystitis Bladder irritation Penicillins Other: See Comments Throat close up Pineapple Shortness of Breath Tongue swells Propoxyphene Napsyl* GI Upset nausea Sulfa (Sulfonamide * Hives Trimethoprim Hives Covid Immunization Dates Overdue - Covid-19 Vaccine () Overdue since 01/30/2023 03/02/2021 Imm Admin: COVID-19 original vaccine, age 12+ yr, monovalent (PFIZER-BIONTECH - [facility]) 06/11/2020 Imm Admin: COVID-19 original vaccine, age 12+ yr, monovalent (PFIZER-BIONTECH - [facility]) 05/18/2020 Imm Admin: COVID-19 original vaccine, age 12+ yr, monovalent (PFIZER-BIONTECH - [facility]) REVIEW OF SYSTEMS: PAIN ASSESSMENT: General: No weight loss, malaise or fevers. Neuro: No history of TIA's, stroke, FINISHING DEPARTMENT SUPERVISOR tumor, impaired sensorium, hemiplegia, paraplegia or quadraplegia. No neurological symptoms or problems. Respiratory: Positive for Tobacco Use Former Smoker quit in 2019 , Negative for No history of current cough or dyspnea, or pneumonia in the past 6 weeks. No history of respiratory/pulmonary symptoms or problems Cardiovascular: No history of HTN requiring medication, no history of angina, CHF, [place], cardiac surgery or stents. Denies rest pain, gangrene or revascularization/amputation for PVD. No history of cardiovascular symptoms or problems. GI: Positive for GERD, Negative for Hepatitis : See HPI PET TRAINER: Negative for abnormal vaginal bleeding, abnormal vaginal discharge. : N/A, No LMP recorded. Patient has had a hysterectomy. Endocrine: Hypothyroidism s/p Thyroidectomy No DM history Hematology: No history of bleeding or clotting disorder. Pt is not taking anti-coagulation or platelet medications. No history of hematological symptoms or problems. Oncology: No history of CA metastasis, chemo within 30 days, or radiotherapy within 90 days. Has not lost 10% of body wt in 6 months. No history of oncological symptoms or problems. Psych: Anxiety, Depression Musculoskeletal: Negative for joint pain or swelling, back pain or muscle pain. Skin: Negative for lesions, rash and itching. Objective PHYSICAL EXAM: VITALS: Resp 16 Ht 5' 5.5 (1.66m) Wt 188 lb (85.3kg) BMI 30.80 kg/(m^2). VIDEO EXAM: (if completed, performed via video enabled technology) GENERAL: alert and appropriate, in no distress, well-hydrated, well nourished, and happy, smiling, interactive SKIN: no rash noted HEAD: normocephalic, no abnormality or lesion noted EYES: no injection NOSE: external nose normal without rhinorrhea OROPHARYNX: moist mucus membranes NECK: full ROM RESPIRATORY: breathing non-labored and no grunting/flaring/retractions CHEST: equal chest rise with normal respiratory effort HEART: regular rate and rhythm verified thru radial pulse count denies any chest pain, palpitations.PVD no Cyanosis EXTREMITIES: denies any edema NEUROLOGIC: no obvious deficit Diagnostic tests reviewed for today's visit: Lab Value Units Date High Low HCGQT No results within date range. UHCG No results within date range. HCG, BODY* No results within date range. Lab Value Units Date High Low ABORHD No results within date range. ABSCREEN No results within date range. No results found for: HBA1C No new labs or tests Instructions Given to Patient: Instructions located in the after visit summary. Patient given verbal and written preop instructions and voices comprehension and compliance. SIGNATURE: Tyson Villarreal APRN.MANAGER BOOKS PATIENT NAME: Frances Arizmendi DATE: 08/20/2023 TIME: 10:35 AM documented in this encounter [facility] 04-30-2023 Miscellaneous Notes Patient phones requesting refills as follows: Requested Prescriptions Pending Prescriptions Disp Refills phenazopyridine (PYRIDIUM) 200 mg tablet 60 tablet 5 Sig: Take 1 tablet by mouth three times a day as needed. For up to 3 days. Extra tablets given for self start Please review and advise. Anni Henderson documented in this encounter [facility] 03-30-2023 Miscellaneous Notes Phone encounter following cystoscopy + hydrodistention and bladder botox injection on 03-25-2023. Patient is not available. Left VM. Piedad Gayle MD documented in this encounter [facility] 03-25-2023 Note HNO ID: [id number] Author: Veronica Allen APRN.DESIGN ENGINEER [employer]ODUCTS Service: ? Author Type: Nurse Jewel Bearing Turner Type: Anesthesia Procedure Notes Filed: 03/25/2023 1:56 PM Note Text: ANESTHESIOLOGY PROCEDURE NOTE Airway General Information Procedure Start Time/Medication Administration: 03/25/2023 1:49 PM Patient location during procedure: OR Timeout Performed Pre-procedure: timeout performed Consent Obtained: Yes Patient identity confirmed: arm band and patient Staffing DESIGN ENGINEER [employer]ODUCTS: Veronica Allen APRN.DESIGN ENGINEER [employer]ODUCTS Performed by: DESIGN ENGINEER PRODUCTS Indications and Patient Condition Indications for airway management: anesthesia Preoxygenated: yes Final Airway Details Final airway type: supraglottic airway Number of attempts at approach: 1 Final Supraglottic Airway: i-gel Size 4 Seal Adequate: yes SIGNATURE: Veronica Allen APRN.DESIGN ENGINEER [employer]ODUCTS PATIENT NAME: Frances Arizmendi DATE: March 25, 2023 TIME: 1:55 PM CSN: [id number] [facility] 03-12-2023 History and physical note PREANESTHESIA CONSULT CLINIC TELEHEALTH VISIT Patient has been identified by name and date of : Yes This is a virtual visit using MyChart Zoom Video Visit. It require patient-provider interaction for the medical decision making as documented below. Reason for contact: PACC visit Accompanied by: Self This is a virtual visit using MyChart Zoom Video Visit. It required patient-provider interaction for the medical decision making as documented below. I have communicated my name and active licensure. The patient's identity and physical location were verified at the time of this visit. Either the patient or their legal medical claims representative has been informed of the risks and benefits of and alternatives to treatment through a remote evaluation and consents to proceed with the evaluation remotely. Scheduled Surgery: CYSTOSCOPY with Jolene Mark MD on 03/25/2023 Subjective CHIEF COMPLAINT: Patient presents with: Pre-Op Visit HPI: This is a 52 year old female who presents with interstitial cystitis with a history of this procedure in the past with good success. Conservative measures have been ineffective. Patient has opted to proceed with above reccommended surgery and is here today for preanesthesia consultation. ACTIVE PROBLEM LIST Hypothyroidism Depression Anxiety Chronic Interstitial Cystitis Ponv (Postoperative Nausea and Vomiting) Bmi 31.0-31.9,Adult Former Smoker PAST MEDICAL HISTORY Diagnosis Date Anxiety Depression Hypothyroidism Interstitial cystitis Light tobacco smoker PONV (postoperative nausea and vomiting) PAST SURGICAL HISTORY Procedure Laterality Date BLADDER SURGERY HX 2017 x 2 CYSTOSCOPY,DIL BLADDER,LOCAL ANESTH 06/2020 EXCISION AXILLARY LYMPH NODE Benign FOOT SURGERY HX Callus removal THYROIDECTOMY SUBTOTAL/PARTIAL 2017 TONSILLECTOMY HX 1985 VAGINAL HYSTERECTOMY FAMILY HISTORY Problem Relation Age of Onset None Mother Hypertension Father Heart Father arrhythmia Anesthesia Problems No Family History Social History Tobacco Use Smoking status: Former Packs/day: 0.50 Years: 18.00 Additional pack years: 0.00 Total pack years: 9.00 Types: Cigarettes Start date: 06/22/2001 Quit date: 10/31/2019 Years since quittin.3 Smokeless tobacco: Never Vaping Use Vaping Use: Never used Substance Use Topics Alcohol use: Yes Comment: 2 glasses a month Drug use: No ALLERGIES Allergen Reactions Asa [Aspirin] Other: See Comments Bladder irritation Azithromycin Swelling tongue swelling Erythromycin Other: See Comments Throat closed up Nsaids (Non-Steroid* Other: See Comments Bladder irritation Penicillins Other: See Comments Throat close up Pineapple Shortness of Breath Tongue swells Propoxyphene Napsyl* GI Upset nausea Sulfa (Sulfonamide * Hives Trimethoprim Hives MEDICATIONS: Current Outpatient Medications Medication Sig ALBUTEROL SULFATE INHALATION Inhale 1 Puff as instructed as needed. Cholecalciferol, Vitamin D3, 125 mcg (5,000 unit) cap Take 1 capsule by mouth once daily. diazePAM (VALIUM) 10 mg tablet Take 1 tablet by mouth twice daily as needed for up to 30 days. docusate sodium (COLACE) 100 mg capsule Take 1 capsule by mouth twice daily. (Patient taking differently: Take 100 mg by mouth as needed.) FLUoxetine (PROZAC) 20 mg capsule Take 1 capsule by mouth daily at bedtime. levothyroxine (SYNTHROID) 50 mcg tablet Take 1 tablet by mouth once daily. lidocaine urojet (XYLOCAINE, GLYDO) 2 % jelp Apply 10 mL to affected area twice daily as needed. phenazopyridine (PYRIDIUM, GERIDIUM) 200 mg tablet Take 1 tablet by mouth three times daily as needed. For up to 3 days. Extra tablets given for self start traMADol (ULTRAM) 50 mg tablet Take 1 tablet by mouth twice daily for 240 doses. zolpidem (AMBIEN) 5 mg tablet Take 5 mg by mouth at bedtime as needed. No current facility-administered medications for this visit. Covid Immunization Dates Overdue - Covid-19 Vaccine (2022- season) Overdue since 01/30/2023 06/11/2020 Imm Admin: COVID-19 original vaccine, age 12+ yr, monovalent (PFIZER-BIONTECH - [facility]) 05/18/2020 Imm Admin: COVID-19 original vaccine, age 12+ yr, monovalent (PFIZER-BIONTECH - [facility]) REVIEW OF SYSTEMS: Pain Assessment: General: No weight loss, malaise or fevers. Neuro: No history of TIA's, stroke, FINISHING DEPARTMENT SUPERVISOR tumor, impaired sensorium, hemiplegia, paraplegia or quadraplegia. No neurological symptoms or problems. Respiratory: No history of current cough or dyspnea, or pneumonia in the past 6 weeks. No history of respiratory/pulmonary symptoms or problems. Cardiovascular: No history of HTN requiring medication, no history of angina, CHF, [place], cardiac surgery or stents. Denies rest pain, gangrene or revascularization/amputation for PVD. No history of cardiovascular symptoms or problems. GI: No history of GI symptoms or problems. No history of esophageal varices, recent ascites, or ETOH greater than 2 drinks per day. : See HPI PET TRAINER: Negative for abnormal vaginal bleeding, abnormal vaginal discharge. : Denies, No LMP recorded. Patient has had a hysterectomy. Endocrine: Hypothyroidism Hematology: No history of bleeding or clotting disorder. Pt is not taking anti-coagulation or platelet medications. No history of hematological symptoms or problems. Oncology: No history of CA metastasis, chemo within 30 days, or radiotherapy within 90 days. Has not lost 10% of body wt in 6 months. No history of oncological symptoms or problems. Psych: No history of psychiatric symptoms or problems. Musculoskeletal: Negative for joint pain or swelling, back pain or muscle pain. Skin: Negative for lesions, rash and itching. Objective PHYSICAL EXAM: Ht 5' 6 (1.68m) Wt 192 lb (87.1kg) BMI 31.00 kg/(m^2). VIDEO EXAM: (if completed, performed via video enabled technology) GENERAL: alert and appropriate, in no distress, well-hydrated, well nourished, and happy, smiling, interactive SKIN: no rash noted HEAD: normocephalic, no abnormality or lesion noted OROPHARYNX: moist mucus membranes NECK: full ROM, no cervical LNs noted RESPIRATORY: breathing non-labored CHEST: equal chest rise with normal respiratory effort HEART: Appears well perfused, cap refill immediate, pulse palpated per patient, regular ABDOMEN: soft and non-tender EXTREMITIES: Denies edema NEUROLOGIC: no obvious deficit Diagnostic tests reviewed for today's visit: Impression/Recommendations ASSESSMENT: PONV (postoperative nausea and vomiting) Assessment: Patient endorses with previous anesthesia. Will require pre-medication Hypothyroidism Assessment: Stable on Levothyroxine (Synthroid) METS: Walk indoors, such as around the house (1.75 METs) Do light work around the house, such as dusting or washing dishes (2.70 METs) Take care of self; that is eating, dressing, bathing, using the toilet (2.75 METs) Climb a flight of stairs or walk up a hill (5.50 METs) Patient denies any chest pain or undue shortness of breath with the above physical activity. ANESTHESIA FINDINGS: Intubation History: No history of difficult intubation Significant Anesthesia Considerations: None Airway Exam: General: Normal appearance Mallampati Score is CLASS I ULBT: Class II - Lower incisors can bite the upper lip below the peggy line Neck: Normal appearance and function, Distance from hyoid to mentum during neck extension is at least 3 finger breaths Mouth: Normal tongue size and Mouth opening greater than 2 finger breaths Dentition: Intact Airway History: No abnormal airway history STOP BANG Score: Criteria: Age over 50 (50 year old) Score = 1 PLAN: Pt optimally prepared for surgery, pending day of surgery CONSULTS: Patient does not require consults for optimization at this time. The Following Tests/Procedures Have Been Initiated: Labs not indicated per PACC protocol, EKG not indicated per PACC protocol Planned Anesthetic: Per anesthesia choice Instructions Given to Patient: Patient given verbal instructions and voices comprehension and compliance. Copy sent electronically via My Chart, email, or mobile device. This is a virtual visit. It required patient-provider interaction for the medical decision making as documented above. SIGNATURE: Lillian Adan APRN.CNP PATIENT NAME: Frances Arizmendi DATE: 03/12/2023 TIME: 1:51 PM PAGER/CONTACT #: documented in this encounter [facility] 03-12-2023 Instructions Lillian Adan APRN.CNP - 03/12/2023 1:53 PM EDT PATIENT PREOPERATIVE INSTRUCTIONS Jolene Mark MD has scheduled you for your procedure at this surgery center: [facility]: [phone] --[phone] [facility], [place] [address] Location is near [facility]. Arrival Time for Surgery: - The Surgery Center or hospital where you are having surgery will call the afternoon before surgery (or Thursday for Thursday surgery) with a scheduled arrival time. - If you have not heard by 4 pm, please contact the surgery center above. Please be aware that emergency situations arise, which may delay or change your surgical time. If this happens, we will notify you as soon as possible and regret any inconvenience. Please read below carefully for your personalized instructions. Dietary Restrictions: - No solid food after midnight. - You may have 12 ounces of clear liquids (water, clear juices such as apple juice or gatorade, carbonated beverages, clear tea, black coffee, jello) until 2 hours before scheduled arrival at facility. - Do not drink any alcohol after midnight the night before your surgery. - No Milk/Dairy - No Pulp Juices Medications: Unless instructed differently below, stay on all of your medications until your surgery. Approved medications to take the morning of surgery with a sip of water: Levothyroxine (Synthroid) Is Patient Diabetic:No If you start any new medications after today's visit, please contact the surgeon's office. Blood Thinning Medications: - Stop NSAIDS (Ibuprofen, Advil, Aleve, Motrin, Celebrex, Mobic, etc.) 7 days before surgery, as directed by your surgeon. - Stop Aspirin 7 days before surgery, as directed by your surgeon. - Stop Vitamin E, ALL multi-vitamins, herbals and dietary supplements 14 days before surgery. - You may take Tylenol (Acetaminophen) or any of your pain medications that do not contain aspirin or NSAIDS as needed. Important Reminders: - Candy, mints, and tobacco products are NOT permitted the morning of surgery. - Hearing aids, dentures and glasses may be worn the morning of surgery. - NO jewelry, body piercings, makeup, hairpins or contacts are to be worn the day of surgery. If you develop symptoms such as a fever, cold, or flu, or have other changes to your health within TWO DAYS of scheduled surgery or the morning of surgery, please contact the surgery center above. Personal Belongings: -Please have photo ID and insurance cards. -If you do not have a copy of advance directives on file with us, please bring a copy with you on the day of surgery. - Leave ALL valuables and money at home or with family members. For Outpatient Procedures: - YOU MUST HAVE A RESPONSIBLE SOCIAL WORK INSTRUCTOR TAKE YOU HOME. A DEAN OF WOMEN OR RADIO DISC JOCKEY CANNOT BE MADE A RESPONSIBLE SOCIAL WORK INSTRUCTOR. - We recommend that a responsible person stays with you overnight to take care of you. - You cannot stay in a hotel alone after outpatient surgery. You will not be permitted to have your surgery, if you do not have someone to take care of you. If you already have an Advance Directive, please fax a copy to [phone] or email to for it to be added to your chart. If you do not have an Advance Directive, you can find the appropriate form and more information at [email or web address]. We recommend that you complete the Advance Directive form found on the website and bring it with you the day of your surgery. It can be witnessed and scanned into your chart that day. Lillian Adan APRN.CNP documented in this encounter [facility] 03-04-2023 Note HNO ID: [id number] Author: Elsy Rees RN Service: ? Author Type: Registered Nurse Type: Progress Notes Filed: 03/04/2023 10:49 AM Note Text: Openend in error [facility] 10-01-2022 Note OPERATIVE NOTE OPERATION DATE: 10/01/2022 PREOPERATIVE DIAGNOSIS: Colorectal screening. POSTOPERATIVE DIAGNOSIS: Normal colonoscopy to cecum. PROCEDURE: Colonoscopy to cecum. SURGEON: Lazaro Marks M.D. ANESTHESIA: Monitored anesthesia care. ESTIMATED BLOOD LOSS: Zero. INDICATIONS AND CONSENT: Patient is a 52-year-old female presents for colorectal screening. Indications, risks, benefits, alternatives of proceeding with colonoscopy were explained extensively to the patient, including the risks of bleeding, colon perforation or anesthetic complications. All of her questions were answered. Informed consent was obtained. PROCEDURE: Patient brought to the operating room, placed in the left lateral decubitus position. Monitored anesthesia care was provided. Rectal exam was performed which showed no masses or blood. The scope was inserted into the anal canal. Under direct visualization was advanced. It was advanced to the cecum where cecal markings were clearly identified. There was noted to be a good prep. Upon withdrawal of the scope, mucosal surfaces were carefully examined. There were no mass lesions or polyps. No inflammatory changes or ulcerations. No significant diverticulosis. The scope was retroflexed in the anal canal. There was no significant hemorrhoidal disease. Scope was then withdrawn. Patient tolerated procedure well, was sent to recovery room in good condition. CC: Patient's family physician [facility] 09-17-2022 Note Chief Complaint consultation for screening colonoscopy [facility] Staff 52 year old female presents on consultation from Mounika Russo NP for screening colonoscopy. Denies abdominal or rectal pain. No rectal bleeding or change in bowel habits. Denies nausea or vomiting. No unexplained weight loss. Last colonoscopy completed greater than 10 years ago due to abnormal CT scan; reported normal per patient. No known family history of colon cancer. History of Present Illness 52 yo female with j/o asthma, hyperlipidemia, hypothyroidism, DDD, lumbar; referred for colorectal screening; denies change in bms or blood in stools; no abdominal complaints; denies asa or NSAID use, no SBE prophylaxis; abdominal operations significant for FELIX and bladder surgery; colonoscopy over 10 years ago, reportedly wnl; no fmhx of GI malignancy or IBD; no tobacco use. Review of Systems PHQ Score Initial Depression Screen Score: 0 ROS - Provider Constitutional: no fever, no sweats, no weight loss. Eyes: no glasses, no blurred vision, no visual loss. ENMT: no dentures, no hoarseness, no swallowing difficulties, no hearing loss, no ear infection(s), no nose bleeds. Cardiovascular: normal blood pressure, no chest pain, regular heartbeat, no heart murmur. Respiratory: no shortness of breath, no cough, no asthma, no wheezing. Gastrointestinal: no nausea, no vomiting, no diarrhea, no constipation, no blood in stool, no change in bowel habits, no abdominal pain, no hepatitis. Genitourinary: no kidney stones, no urine infection, no dysuria. Musculoskeletal: no pain, no weakness. Skin: no changing moles, no rash, no skin lumps. Neurologic: no seizures, no epilepsy, no headache. Psychiatric: no emotional or psychiatric problem. Heme/Lymph: no bleeding problems, no anemia, no blood clots, no transfusions. Allergy/Immunologic: no swollen lymph nodes/glands, no IV drug abuse. Other: Additional ROS info: Except as noted in the above Review of Systems and in the History of Present Illness, all other systems have been reviewed and are negative or noncontributory. Physical Exam Vitals & Measurements HR: 74(Peripheral) RR: 16 BP: 132/92 HT: 65 in HT: 165.1 cm WT: 83.4 kg WT: 183.48 lb BMI: 30.6 HEENT: normal conjunctiva, sclera clear, no scleral icterus, EOM intact, PERRLA, oral mucosa moist without lesions. Neck: trachea midline, no mass, symmetric, no thyromegaly or nodules, no adenopathy Respiratory: lungs CTA, respirations non labored. Cardiovascular: regular rate and rhythm, no murmur, no pedal edema or varicosities. Gastrointestinal: soft, non distended, no tenderness, no masses, no palpable hernias, diastasis recti no, no hepatosplenomegaly; normal bs Lymphatic: no cervical adenopathy, no supraclavicular adenopathy Musculoskeletal: normal gait, digits and nails without infection, nodes, cyanosis, clubbing. Skin: no rashes, no lesions, no ulcers, no subcutaneous nodules, induration. Psychiatric/Neuro: oriented to time, place, person, judgement normal, affect appropriate for age, insight intact, no focal deficits. Tests: review of old records completed, Discussed surgical options, risks, and possible complications with patient. Assessment/Plan 1. Screening for malignant neoplasm of colon (Z12.11: Encounter for screening for malignant neoplasm of colon) plan colonoscopy under anesthesia, informed consent obtained. Follow-up No qualifying data available Problem List/Past Medical History Ongoing Allergic rhinitis Anxiety Asthma BMI 30.0-30.9,adult Breast microcalcifications Chronic constipation Chronic interstitial cystitis DDD (degenerative disc disease), lumbar Depressive disorder Hyperlipidemia Hypothyroidism Insomnia Interstitial cystitis Nontoxic multinodular goiter Obesity Screening for malignant neoplasm of colon Tobacco user Vitamin D deficiency Historical No qualifying data Procedure/Surgical History Abdominal hysterectomy, Colonoscopy, Correction of hammer toe, Excision of cyst, Excision of lipoma of shoulder, History of urinary bladder surgery, Insertion of IUD, IUD - Removal of displaced intrauterine device, Right lobectomy of thyroid gland, Tonsillectomy. Medications Ambien 5 mg Tab, 5 mg= 1 tab(s), Oral, Once a day (at bedtime) levothyroxine 50 mcg (0.05 mg) Tab, 50 mcg= 1 tab(s), Oral, Daily MiraLax, 17 gm, Oral, Daily phentermine 37.5 mg oral capsule, 37.5 mg= 1 cap(s), Oral, Daily Prozac 20 mg Cap, 20 mg= 1 cap(s), Oral, Daily Vitamin D 50,000 intl units (1.25 mg) oral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
--- NOTE | 2025-02-16 09:44 | MM_ITS ---
Patient Name: FRANCES STEEL MR#: [id number] : 1970 Exam Date: 02/16/2025 Ordering Doctor: [facility] REPORT PROCEDURE: MM TOMOSYNTHESIS SCREENING BI COMPARISON: MM TOMOSYNTHESIS SCREENING BI, 02/04/2024. MM TOMOSYNTHESIS SCREENING BI, 01/26/2023. MM TOMOSYNTHESIS SCREENING BI, 03/23/2020. MM TOMOSYNTHESIS SCREENING BI, 04/21/2018. INDICATIONS: Screening Calculator Name NCI Breast Cancer Risk Assessment Tool 5 Year Breast Cancer Risk Not Reported. Lifetime Breast Cancer Risk Not Reported. Personal Breast Cancer No Personal Ovarian Cancer No Treatments None Family Cancers None LOCATION: [facility] BREAST COMPOSITION: There are scattered areas of fibroglandular density. FINDINGS: DIAGNOSTIC CATEGORY 1--NEGATIVE. RIGHT BREAST: No significant suspicious finding. LEFT BREAST: No significant suspicious finding. RECOMMENDATIONS: ROUTINE MAMMOGRAM AND CLINICAL EVALUATION IN 12 MONTHS. Dictated by: Gustavo Smith MD on 02/16/2025 at 12:47 Approved by: Gustavo Smith MD on 02/16/2025 at 12:49
[2025-02-16 09:52] LABS: Hematocrit 40.4 % (36.0-48.0); Hemoglobin 13.5 g/dL (12.0-16.0); Immature Granulocytes Abs Auto 0.00 10^3/uL (0.00-0.03); Immature Granulocytes Pct Auto 0.0 % (0.0-0.5); Lymphocytes Absolute Auto 1.7 10^3/uL (1.2-3.8); Mean Corpuscular HGB Conc 33.4 g/dL (29.9-35.2); Mean Corpuscular Hemoglobin 31.4 pg (26.7-34.0); Mean Corpuscular Volume 94.0 fL (81.0-99.0); Platelet Count 312 10^3/uL (150-450); Red Blood Count 4.30 10^6/uL (4.20-5.40); White Blood Count 4.0 10^3/uL (4.0-11.0)
[2025-02-16 11:44] LABS: Anion Gap 11.1; Blood Urea Nitrogen 11.0 mg/dL (7.0-18.0); Calcium 9.2 mg/dL (8.5-10.1); Carbon Dioxide 30.6 mmol/L (21.0-32.0); Chloride 108 mmol/L (98-107); Estimated GFR (African America >60 (>=60 mL/min/1.73m^2); Estimated GFR (Non-African Ame >60 (>=60 mL/min/1.73m^2); Glucose 100 mg/dL (74-106); Potassium 4.7 mmol/L (3.5-5.1); Sodium 145 mmol/L (136-145)
[2025-02-16 11:45] LABS: Alanine Aminotransferase 24 U/L (14-59); Albumin Globulin Ratio 1.0; Albumin Level 3.8 g/dL (3.4-5.0); Alkaline Phosphatase 85 U/L (46-116); Aspartate Amino Transferase 13 U/L (15-37); Cholesterol 214 mg/dL (<=200); Globulin 3.9 g/dL; HDL Cholesterol 81 mg/dL (40-60); Thyroid Stimulating Hormone 1.505 uIU/mL (0.358-3.740); Total Protein 7.7 g/dL (6.4-8.2); Triglycerides 30 mg/dL (<=150); VLDL CHOLESTEROL 6.0 mg/dL
[2025-02-17 03:12] LABS: Vitamin B12 442 pg/mL (232-1245)
== END 2025-02-16 09:21 | disposition home or self-care (01) ==
LOC: LAB 09:20
PROVIDERS: PCP Family Medicine; Visit Provider Nurse Practitioner
DX: Z00.00 Encounter for general adult medical examination without abnormal findings (principal); Z12.31 Encounter for screening mammogram for malignant neoplasm of breast; F41.0 Panic disorder [episodic paroxysmal anxiety]; F41.8 Other specified anxiety disorders; Z13.29 Encounter for screening for other suspected endocrine disorder; E66.811 Obesity, class 1; E66.09 Other obesity due to excess calories; Z68.30 Body mass index [BMI] 30.0-30.9, adult
CPT/HCPCS: 36415; 77063; 77067; 80053; 80061; 82306; 82607; 84439; 84443; 85025